=== PATIENT | male | born 1985 | race Caucasian/White ===

== ENCOUNTER → 2020-02-19 | Outpatient (REF) | payer BC ==
[~2020-02-19] MED LIST: FLUT1SPR2; LORA-243 PO
== END ==
LOC: M LAB REF 10:10
PROVIDERS: ATTEND Physician Assistant
DX: J02.9 Acute pharyngitis, unspecified (principal)

== ENCOUNTER 2021-04-21 03:06 | Emergency (ER) | payer BC ==
[~2021-04-21] VITALS: Ht 190.5 cm; Wt 131.0 kg
[2021-04-21 03:08] VITALS: BP 139/80
[2021-04-21] MEDS ORDERED: LOPR1TAB6 PO (03:17)
--- OUTSIDE RECORDS SUMMARY | 2021-04-21 03:18 | CCD | Continuity of Care Document ---
Author Author John MORA Organization Unknown Address [address] [facility] [address] [place] [address] Phone [phone] Care Team Providers Care Clinical Aide Name Role Phone RAYMOND MORA AUTM [phone] Social History Type Date Description Comments Sex Unknown Vital Signs Date Vital Result Comment 03/14/2021 9:27am Height 74 inches 6'2" Weight 281.25 lb BMI (Body Mass Index) 36.1 kg/m2 Body Temperature 98.5 F BP Systolic 148 mmHg BP Diastolic 106 mmHg Heart Rate 129 /min O2 % BldC Oximetry 97 % Respiratory Rate 18 /min Procedures Date Code Description Status 01/10/2021 35813 Office/Outpatient [facility] 30 -44 Minutes Completed Encounters Type Date Location Provider Dx Diagnosis Office Visit 01/10/2021 3:00p [facility] PABLO Joseph I10 Essential (primary) hyperten frantz J30.9 Allergic rhinitis, unspecifi ed Assessments Date Code Description Provider 01/10/2021 I10 Essential (primary) hypertension PABLO Andre 01/10/2021 J30.9 Allergic rhinitis, unspecified F PABLO Dolan Plan of Treatment Future Appointment(s):* 04/15/2021 8:30 am - PABLO Andre at [facility] Referrals Refer to Reason for Referral Status Appt Date Fabien Holly M.D. PATIENT WITH C/O CHEST PRESU RE. PLEASE DO CARDIAC CONSULT. Sent 02/06/[address] [place] [address] [phone]
--- OUTSIDE RECORDS SUMMARY | 2021-04-21 03:18 | CCD | Continuity of Care Document ---
Author Author John MORA Organization Unknown Address [address] [facility] [address] [place] [address] Phone [phone] Care Team Providers Care Drafter Electrical Name Role Phone RAYMOND MORA AUTM Social History Type Date Description Comments Sex Unknown Procedures Date Code Description Status 01/10/2021 26747 Office/Outpatient New Low MDM 30 -44 Minutes Completed Encounters Type Date Location Provider Dx Diagnosis Office Visit 01/10/2021 3:00p [facility] PABLO Joseph I10 Essential (primary) hyperten frantz J30.9 Allergic rhinitis, unspecifi ed Assessments Date Code Description Provider 01/10/2021 I10 Essential (primary) hypertension PABLO Andre 01/10/2021 J30.9 Allergic rhinitis, unspecified F redPABLO Ventura Plan of Treatment Future Appointment(s):* 02/06/2021 1:45 pm - Fabien Holly [facility] at [facility] * 04/15/2021 8:30 am - PABLO Andre at [facility] Referrals Refer to Reason for Referral Status Appt Date Fabien Holly M.D. PATIENT WITH C/O CHEST PRESU RE. PLEASE DO CARDIAC CONSULT. Sent 02/06/[address] [place] [address] [phone]
--- OUTSIDE RECORDS SUMMARY | 2021-04-21 03:18 | CCD | Continuity of Care Document ---
Author Author John NAYLOR P.C. Organization Unknown Address [address] [place] [address] Phone [phone] Care Team Providers Care Crm Specialist Name Role Phone RAYMOND MORA AUTM [phone] Problems Active Problems Provider Date Essential hypertension PABLO Knott Onset: 04/15/2021 Social History Type Date Description Comments Sex Unknown ETOH Use Occasionally consumes alcohol Tobacco Use Start: Unknown End: Unknown Patient is a former smoker Recreational Drug Use Current marijuana use Allergies and adverse reactions Description No Known Drug Allergies Medications Active Medications SIG Qnty Indications Ordering Provide r Date Metoprolol Succinate ER 25mg Tablets ER 24HR 1 tab by mouth every day 90tabs Chito Naylor,P.C. Vital Signs Date Vital Result Comment 04/15/2021 8:33am Height 74 inches 6'2" Weight 285.50 lb BMI (Body Mass Index) 36.7 kg/m2 Body Temperature 98.1 F BP Systolic 127 mmHg BP Diastolic 84 mmHg Heart Rate 76 /min O2 % BldC Oximetry 98 % Respiratory Rate 16 /min 03/14/2021 9:27am Height 74 inches 6'2" Weight 281.25 lb BMI (Body Mass Index) 36.1 kg/m2 Body Temperature 98.5 F BP Systolic 148 mmHg BP Diastolic 106 mmHg Heart Rate 129 /min O2 % BldC Oximetry 97 % Respiratory Rate 18 /min Results Test Acquired Date Facility Test Result H/L Range Note Comprehensive Metabolic Panel 04/15/2021 [facility] Glucose 107 mg/dL High 65-99 1, 2 Urea Nitrogen (BUN) 12 mg/dL Normal 7-25 Creatinine 0.88 mg/dL Normal 0.60-1.35 eGFR Non-Afr. [place] 110 mL/min/1.73m2 Normal > Or = 60 eGFR 127 mL/min/1.73m2 Normal > Or = 60 BUN/Creatinine Ratio NOT APPLICABLE (calc) 6-22 Sodium 140 mmol/L Normal 135-146 Potassium 4.0 mmol/L Normal 3.5-5.3 Chloride 106 mmol/L Normal 98-110 Carbon Dioxide 25 mmol/L Normal 20-32 Calcium 9.3 mg/dL Normal 8.6-10.3 Protein, Total 7.3 g/dL Normal 6.1-8.1 Albumin 4.3 g/dL Normal 3.6-5.1 Globulin 3.0 g/dL(calc) Normal 1.9-3.7 Albumin/Globulin Ratio 1.4 (calc) Normal 1.0-2.5 Bilirubin, Total 0.7 mg/dL Normal 0.2-1.2 Alkaline Phosphatase 46 U/L Normal 36-130 Ast 67 U/L High 10-40 Alt 143 U/L High 9-46 Thyroid Panel With TSH 04/15/2021 [facility] T3 Uptake 27 % Normal 22-35 T4 (Thyroxine), Total 9.0 g/dL Normal 4.9-10.5 Free T4 Index (T7) 2.4 Normal 1.4-3.8 TSH 1.48 mIU/L Normal 0.40-4.50 Laboratory test finding 04/15/2021 [facility] Hemoglobin A1c 5.8 %oftotalHgb High <5.7 3 Enhanced PDF Report [id number] SEE IMAGE 1 FASTING:YES FASTING: YES 2 Fasting reference interval For someone without known diabetes, a glucose value between 100 and 125 mg/dL is consistent with prediabetes and should be confirmed with a follow-up test. 3 For someone without known di abetes, a hemoglobin A1c value between 5.7% and 6.4% is consistent with prediabetes and should be confirmed with a follow-up test. For someone with known diabetes, a value <7% indicates that their diabetes is well controlled. A1c targets should be individualized based on duration of diabetes, age, comorbid conditions, and other considerations. This assay result is consistent with an increased risk of diabetes. Currently, no consensus exists regarding use of hemoglobin A1c for diagnosis of diabetes for children. Procedures Date Code Description Status 04/15/2021 52308 Office/Outpatient Established Mo d MDM 30-39 Min Completed 03/14/2021 83575 Office/Outpatient Established Lo w MDM 20-29 Min Completed 01/10/2021 76777 Office/Outpatient New Low MDM 30 -44 Minutes Completed Encounters Type Date Location Provider Dx Diagnosis Office Visit 04/15/2021 8:45a [facility] PABLO Miner I10 Essential (primary) hypertension R53.83 Other fatigue R73.03 Prediabetes G47.33 Obstructive sleep apnea (larisa lt) (pediatric) Office Visit 03/14/2021 9:30a [facility] PABLO Joseph I10 Essential (primary) hyperten frantz J02.0 Streptococcal pharyngitis Office Visit 01/10/2021 3:00p [facility] PABLO Joseph I10 Essential (primary) hyperten frantz J30.9 Allergic rhinitis, unspecifi ed Assessments Date Code Description Provider 04/15/2021 I10 Essential (primary) hypertension PABLO Knott 04/15/2021 R53.83 Other fatigue PABLO Knott 04/15/2021 R73.03 Prediabetes PABLO Knott 04/15/2021 G47.33 Obstructive sleep apnea (adult) (pediatric) PABLO Knott 03/14/2021 I10 Essential (primary) hypertension PABLO Andre 03/14/2021 J02.0 Streptococcal pharyngitis PABLO Mendiola 01/10/2021 I10 Essential (primary) hypertension PABLO Andre 01/10/2021 J30.9 Allergic rhinitis, unspecified F PABLO Dolan Plan of Treatment Future Appointment(s):* 07/15/2021 8:30 am - PABLO Knott at [facility] 04/15/2021 - PABLO Knott* I10 Essential (primary) hypertension* Comments:* Counseled about life style changes such as Smoking cessation, control blood glucose and lipids, Diet (DASH), reduce sodium to less than 2400 mg QD, Physical activity moderate to vigorous activity 3-4 days per week averaging 40 min per session No change in medications today. Will continue to monitor. * R53.83 Other fatigue* Comments:* Will obtain labs this morning. Will put in referral for sleep study. * R73.03 Prediabetes* Comments:* Will obtain baseline labs today. * G47.33 Obstructive sleep apnea (adult) (pediatric)* Comments:* Stop-Bang Q- 6 High risk of OSASnoring? - yesDo you snore loudly (loud enough to be heard through closed doors, or your bed partner elbows you for snoring at night)? Tired?- yesDo you often feel tired, fatigued, or sleepy during the daytime (such as falling asleep during driving)?Observed? - noHas anyone observed you stop breathing or choking/gasping during your sleep?Blood Pressure? - yes , on medications nowDo you have or are being treated for high blood pressure?Body mass index more than 35 kg/m2?- yes 36.7Age older than 50 years old?- noIs your shirt collar 16 inches or larger? - yes Gender (biologic sex) = Male?- yesMallampati classification3 barley able to see uvula * Referral:* [facility] Referrals Refer to Reason for Referral Status Appt Date [facility] possible obstructive sleep apnea Created [address] [place] [address] [phone] Fabien Holly M.D. PATIENT WITH C/O CHEST PRESU RE. PLEASE DO CARDIAC CONSULT. Closed 02/06/[address] [place] [address] [phone]
--- OUTSIDE RECORDS SUMMARY | 2021-04-21 03:18 | CCD | Continuity of Care Document ---
Author Author John VANEGAS Organization Unknown Address [address] [facility] [address] [place] [address] Phone [phone] Care Team Providers Care Commercial Property Manager Name Role Phone RAYMOND MORA AUTM [phone] Problems Active Problems Provider Date Essential [...] tab by mouth every day 90tabs Chito Negrete,P.C. Vital Signs Date Vital Result Comment 04/15/2021 [...] Creatinine 0.88 mg/dL Normal 0.60-1.35 eGFR Non-Afr. [place] 110 mL/min/1.73m2 Normal > Or = 60 [...] %oftotalHgb High <5.7 3 Enhanced PDF Report [id number] SEE IMAGE 1 FASTING:YES FASTING: YES 2 [...] children. Procedures Date Code Description Status 04/15/2021 66150 Office/Outpatient Established Mo d MDM 30-39 Min Completed 03/14/2021 18180 Office/Outpatient Established Lo w MDM 20-29 Min Completed 01/10/2021 60588 Office/Outpatient New Low MDM 30 -44 Minutes Completed Encounters Type Date Location Provider Dx Diagnosis Office Visit 04/15/2021 8:45a [facility] PABLO Miner I10 Essential (primary) hypertension R53.83 Other fatigue R73.03 Prediabetes G47.33 Obstructive sleep apnea (larisa lt) (pediatric) Office Visit 03/14/2021 9:30a [facility] PABLO Joseph I10 Essential (primary) hyperten frantz J02.0 Streptococcal pharyngitis Office Visit 01/10/2021 3:00p [facility] PABLO Joseph I10 Essential (primary) hyperten frantz [...] 07/15/2021 8:30 am - PABLO Knott at [facility] 04/15/2021 - PABLO Knott* I10 Essential (primary) [...] [facility] possible obstructive sleep apnea Created [address] [place] [address] [phone] Fabien Holly M.D. PATIENT WITH C/O CHEST PRESU RE. PLEASE DO CARDIAC CONSULT. Closed 02/06/[address] [place] [address] [phone]
--- OUTSIDE RECORDS SUMMARY | 2021-04-21 03:18 | CCD ---
Author Author [facility] Organization [facility] Address Unknown Phone Unavailable Care Team Providers Care Sample Collector Name Role Phone Moiz Bullard Unavailable Unavailable MustizerMoiz Unavailable Unavailable MustMoiz boogie Unavailable Unavailable MustMoiz boogie Unavailable Unavailable MustizerMoiz Unavailable Unavailable MustizerMoiz Unavailable Unavailable MustizerMoiz Unavailable Unavailable MustizerMoiz Unavailable Unavailable MustizerMoiz Unavailable Unavailable NO, PCP Unavailable Unavailable LAROCKNancy NP Unavailable Unavailable LAROCKNancy NP Unavailable Unavailable LAROCKNancy NP Unavailable Unavailable LAROCKNancy NP Unavailable Unavailable LAROCKNancy NP Unavailable Unavailable LAROCKNancy NP Unavailable Unavailable LAROCKNancy NP Unavailable Unavailable LAROCKNancy NP Unavailable Unavailable LAROCKNancy NP Unavailable Unavailable LAROCKNancy NP Unavailable Unavailable LAROCKNancy NP Unavailable Unavailable LAROCKNancy NP Unavailable Unavailable LAROCKNancy NP Unavailable Unavailable LAROCKNancy NP Unavailable Unavailable LAROCKNancy NP Unavailable Unavailable LAROCKNancy NP Unavailable Unavailable LAROCKNancy NP Unavailable Unavailable LAROCKNancy NP Unavailable Unavailable LAROCKNancy NP Unavailable Unavailable LAROCKNancy NP Unavailable Unavailable LAROCKNancy NP Unavailable Unavailable LAROCKNancy NP Unavailable Unavailable TURRIN, MORRIS Unavailable Unavailable TURRIN, MORRIS Unavailable Unavailable TURRIN, MORRIS Unavailable Unavailable TURRIN, MORRIS Unavailable Unavailable LEBRON, G EDWARD RPA Unavailable Unavailable LEBRON, G EDWARD RPA Unavailable Unavailable LEBRON, G EDWARD RPA Unavailable Unavailable LEBRON, G EDWARD RPA Unavailable Unavailable LEBRON, G EDWARD RPA Unavailable Unavailable LEBRON, G EDWARD RPA Unavailable Unavailable LEBRON, G EDWARD RPA Unavailable Unavailable LEBRON, G EDWARD RPA Unavailable Unavailable LEBRON, G EDWARD RPA Unavailable Unavailable LEBRON, G EDWARD RPA Unavailable Unavailable LEBRON, G EDWARD RPA Unavailable Unavailable LEBRON, G EDWARD RPA Unavailable Unavailable LEBRON, G EDWARD RPA Unavailable Unavailable LEBRON, G EDWARD RPA Unavailable Unavailable LBERON, G EDWARD RPA Unavailable Unavailable LEBRON, G EDWARD RPA Unavailable Unavailable LEBRON, G EDWARD RPA Unavailable Unavailable LEBRON, G EDWARD RPA Unavailable Unavailable LEBRON, G EDWARD RPA Unavailable Unavailable LEBRON, G EDWARD RPA Unavailable Unavailable LEBRON, G EDWARD RPA Unavailable Unavailable LEBRON, G EDWARD RPA Unavailable Unavailable LEBRON, G EDWARD RPA Unavailable Unavailable LEBRON, G EDWARD RPA Unavailable Unavailable LEBRON, G EDWARD RPA Unavailable Unavailable LEBRON, G EDWARD RPA Unavailable Unavailable LEBRON, G EDWARD RPA Unavailable Unavailable LEBRON, G EDWARD RPA Unavailable Unavailable LEBRON, G EDWARD RPA Unavailable Unavailable LEBRON, G EDWARD RPA Unavailable Unavailable LEBRON, G EDWARD RPA Unavailable Unavailable LEBRON, G EDWARD RPA Unavailable Unavailable LEBRON, G EDWARD RPA Unavailable Unavailable LEBRON, G EDWARD RPA Unavailable Unavailable LEBRON, G EDWARD RPA Unavailable Unavailable LEBRON, G EDWARD RPA Unavailable Unavailable LEBRON, G EDWARD RPA Unavailable Unavailable TONTARSKI, G RAYMOND PA Unavailable Unavailable TONTARSKI, G RAYMOND PA Unavailable Unavailable TONTARSKI, G RAYMOND PA Unavailable Unavailable TONTARSKI, G RAYMOND PA Unavailable Unavailable TONTARSKI, G RAYMOND PA Unavailable Unavailable TONTARSKI, G RAYMOND PA Unavailable Unavailable TONTARSKI, G RAYMOND PA Unavailable Unavailable TONTARSKI, G RAYMOND PA Unavailable Unavailable TONTARSKI, G RAYMOND PA Unavailable Unavailable TONTARSKI, G RAYMOND PA Unavailable Unavailable TONTARSKI, G RAYMOND PA Unavailable Unavailable TONTARSKI, G RAYMOND PA Unavailable Unavailable TONTARSKI, G RAYMOND PA Unavailable Unavailable TONTARSKI, G RAYMOND PA Unavailable Unavailable TONTARSKI, G RAYMOND PA Unavailable Unavailable TONTARSKI, G RAYMOND PA Unavailable Unavailable TONTARSKI, G RAYMOND PA Unavailable Unavailable TONTARSKI, G RAYMOND PA Unavailable Unavailable TONTARSKI, G RAYMOND PA Unavailable Unavailable TONTARSKI, G RAYMOND PA Unavailable Unavailable TONTARSKI, G RAYMOND PA Unavailable Unavailable TONTARSKI, G RAYMOND PA Unavailable Unavailable TONTARSKI, G RAYMOND PA Unavailable Unavailable TONTARSKI, G RAYMOND PA Unavailable Unavailable TONTARSKI, G RAYMOND PA Unavailable Unavailable TONTARSKI, G RAYMOND PA Unavailable Unavailable TONTARSKI, G RAYMOND PA Unavailable Unavailable TONTARSKI, G RAYMOND PA Unavailable Unavailable TONTARSKI, G RAYMOND PA Unavailable Unavailable TONTARSKI, G RAYMOND PA Unavailable Unavailable TONTARSKI, G RAYMOND PA Unavailable Unavailable TONTARSKI, G RAYMOND PA Unavailable Unavailable TONTARSKI, G RAYMOND PA Unavailable Unavailable TONTARSKI, G RAYMOND PA Unavailable Unavailable TONTARSKI, G RAYMOND PA Unavailable Unavailable TONTARSKI, G RAYMOND PA Unavailable Unavailable TONTARSKI, G RAYMOND PA Unavailable Unavailable TONTARSKI, G RAYMOND PA Unavailable Unavailable TONTARSKI, G RAYMOND PA Unavailable Unavailable TONTARSKI, G RAYMOND PA Unavailable Unavailable TONTARSKI, G RAYMOND PA Unavailable Unavailable TONTARSKI, G RAYMOND PA Unavailable Unavailable TONTARSKI, G RAYMOND PA Unavailable Unavailable TONTARSKI, G RAYMOND PA Unavailable Unavailable TONTARSKI, G RAYMOND PA Unavailable Unavailable TONTARSKI, G RAYMOND PA Unavailable Unavailable TONTARSKI, G RAYMOND PA Unavailable Unavailable TONTARSKI, G RAYMOND PA Unavailable Unavailable Re-disclosure Warning The records that you are about to access may contain information from federally-assisted alcohol or drug abuse programs. If such information is present, then the following federally mandated warning applies: This information has been disclosed to you from records protected by federal confidentiality rules (42 CFR part 2). The federal rules prohibit you from making any further disclosure of this information unless further disclosure is expressly permitted by the written consent of the person to whom it pertains or as otherwise permitted by 42 CFR part 2. A general authorization for the release of medical or other information is NOT sufficient for this purpose. The Federal rules restrict any use of the information to criminally investigate or prosecute any alcohol or drug abuse patient.The records that you are about to access may contain highly sensitive health information, the redisclosure of which is protected by Article 27-F of the [facility] Public Health law. If you continue you may have access to information: Regarding HIV / AIDS; Provided by facilities licensed or operated by the [facility] Office of Mental Health; or Provided by the [facility] Office for People With Developmental Disabilities. If such information is present, then the following [facility] mandated warning applies: This information has been disclosed to you from confidential records which are protected by state law. State law prohibits you from making any further disclosure of this information without the specific written consent of the person to whom it pertains, or as otherwise permitted by law. Any unauthorized further disclosure in violation of state law may result in a fine or prison sentence or both. A general authorization for the release of medical or other information is NOT sufficient authorization for further disc losure. Encounters Encounter Providers Location Date Indications Data Source(s ) Outpatient Attender: Breana Bullard [facility] 07:45:00 AM EST [facility] (Fabien Holly MD) Outpatient Attender: RAYMOND MORA [facility] 03/14/2021 09:30:00 AM EDT [facility] (Fabien Holly MD) Outpatient Attender: DIONE WEISS NP 02/10 08:13:40 AM EDT - 03/09/2021 08:32:34 AM EDT [facility] ([facility] ) Outpatient Attender: RAYMOND MORA [facility] 01/10/2021 03:00:00 PM EDT [facility] (Fabien Holly MD) Emergency Attender: MORRIS De Los Santossultant: PCP NO 01/09/2021 10:55:00 AM EDT - 01/09/2021 04:11:00 PM EDT [facility] Patient discharged. Outpatient Attender: KEVIN LEBRON RPA 12/26 08:32:08 AM EDT - 12/26/2020 08:52:23 AM EDT [facility] ([facility] ) Immunizations Vaccine Date Status Description Data Source(s) COVID-19 VACCINE Moderna 04/16/2021 12:00:00 AM EST completed [facility] Vaccine Series Complete: YESThis Data wa s Submitted to [facility] Via VoterTide. COVID-19 VACCINE Moderna 08/30/2020 12:00:00 AM EDT completed [facility] Vaccine Series Complete: YESThis Data wa s Submitted to [facility] Via ShopitizeIS. COVID-19 VACCINE Moderna 08/02/2020 12:00:00 AM EDT completed [facility] Vaccine Series Complete: NOThis Data was Submitted to [facility] Via VoterTide. Medications Medication Brand Name Start Date Product Form Dose Route Admi nistrative Instructions Pharmacy Instructions Status Indications Reaction Description Data Source(s) Amoxicillin 875 MG Oral Tablet Amoxicillin 02/22/2020 12:00:00 AM EDT ORAL active [facility] ([facility]) Insurance Providers Payer name Policy type / Coverage type Policy ID Covered alliance party ID Covered alliance party's relationship to galeana Policy [place] Plan Information [employer] and Blue Shield [place] Blue Cross/B lue Shield [id number] Self [id number] BLUE CROSS BLUE SHIELD -O/P [id number] 18 [id number] BCBS [place] WATN PPO 302/[id number] SP [id number] ANSI-Commercial [id number] [employer]CELL[place] BCBS B [id number] S [id number] BS [place] Commercial [id number] Self [id number] SP [id number] BLUE CROSS [id number] 18 [id number] BCBS OF [place] [id number] SP [id number] Problems, Conditions, and Diagnoses Code Display Name Description Problem Type Effective Dates Data Source(s) Q11073 Personal history of nicotine dependence Personal history of nicotine dependence Diagnosis 01/09/2021 10:55:00 AM [facility] 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 Diagnosis 01/09/2021 10:55:00 AM [facility] I10 Essential (primary) hypertension Essential (primary) h ypertension Diagnosis 01/09/2021 10:55:00 AM [facility] R0789 Other chest pain Other chest pain Diagnosis 01/09/2021 10 :55:00 AM [facility] [id number] Essential hypertension Essential hypertension Problem 04/15/2021 12:00:00 AM EST [facility] (Fabien Holly MD) Surgeries/Procedures Procedure Description Date Indications Data Source(s) OFFICE OUTPATIENT VISIT 25 MINUTES 04/15/2021 12:00:00 AM EST [facility] (Fabien Holly MD) OFFICE OUTPATIENT VISIT 15 MINUTES 03/14/2021 12:00:00 AM EDT [facility] (Fabien Holly MD) OFFICE OUTPATIENT NEW 30 MINUTES 01/10/2021 12:00:00 A M EDT [facility] (Fabien Holly MD) Results ID Date Data Source [id number] 04/15/2021 09:00:00 AM EST [facility] (Fabien Holly MD) Name Value Range Interpretation Code Description Data Lore rce(s) Supporting Document(s) Hemoglobin A1c/Hemoglobin.total in Blood 5.8 %oftotalHgb A juany high normal [facility] (Fabien Holly MD) FASTING:YES FASTING: YES Laboratory test finding (navigational concept) Laboratory test result [facility] (Fabien Holly MD) FASTING:YES FASTING: YES ID Date Data Source [id number] 04/15/2021 09:00:00 AM EST [facility] (Fabien Holly MD) Name Value Range Interpretation Code Description Data Lore rce(s) Supporting Document(s) Triiodothyronine resin uptake (T3RU) in Serum or Plasma 27 % 22-35 Normal (applies to non-numeric results) [facility] (Fabien Holly MD) FASTING:YES FASTING: YES Thyroxine (T4) [Mass/volume] in Serum or Plasma 9.0 ug/dL 4.9-10.5 Normal (applies to non-numeric results) [facility] (Fabien Holly MD) FASTING:YES FASTING: YES Thyroxine (T4) free index in Serum or Plasma by calculation 2.4 1.4-3.8 Normal (applies to non-numeric results) [facility] (Fabien Holly MD) FASTING:YES FASTING: YES Thyrotropin [Units/volume] in Serum or Plasma 1.48 mIU/L 0. 40-4.50 Normal (applies to non-numeric results) [facility] (Fabien Holly MD) FASTING:YES FASTING: YES ID Date Data Source [id number] 04/15/2021 09:00:00 AM EST [facility] (Fabien Holly MD) Name Value Range Interpretation Code Description Data Lore rce(s) Supporting Document(s) Glucose [Mass/volume] in Serum or Plasma 107 mg/dL 65-99 Above high normal [facility] (Fabien Holly MD) FASTING:YES FASTING: YES Urea nitrogen [Mass/volume] in Serum or Plasma 12 mg/dL 7 -25 Normal (applies to non-numeric results) [facility] (Fabien Holly MD) FASTING:YES FASTING: YES Creatinine [Mass/volume] in Serum or Plasma 0.88 mg/dL 0.60 -1.35 Normal (applies to non-numeric results) [facility] (Fabien Holly MD) FASTING:YES FASTING: YES eGFR Non-Afr. [place] Citizen 110 mL/min/1.73m2 Normal (applies to non-numeric results) [facility] (Fabien Holly MD) FASTING:YES FASTING: YES Urea nitrogen/Creatinine [Mass Ratio] in Serum or Plasma Lab oratory test result 6-22 [facility] (Fabien Holly MD) FASTING:YES FASTING: YES eGFR 127 mL/min/1.73m2 Normal ( applies to non-numeric results) [facility] (Fabien Holly MD) FASTING:YES FASTING: YES Sodium [Moles/volume] in Serum or Plasma 140 mmol/L 135-146 Normal (applies to non-numeric results) [facility] (Fabien Holly MD) FASTING:YES FASTING: YES Potassium [Moles/volume] in Serum or Plasma 4.0 mmol/L 3.5- 5.3 Normal (applies to non-numeric results) [facility] (Fabien Holly MD) FASTING:YES FASTING: YES Chloride [Moles/volume] in Serum or Plasma 106 mmol/L 98-11 0 Normal (applies to non-numeric results) [facility] (Fabien Holly MD) FASTING:YES FASTING: YES Carbon dioxide, total [Moles/volume] in Serum or Plasma 25 mmol/ L 20-32 Normal (applies to non-numeric results) [facility] (Fabien Holly MD) FASTING:YES FASTING: YES Calcium [Mass/volume] in Serum or Plasma 9.3 mg/dL 8.6-10. 3 Normal (applies to non-numeric results) [facility] (Fabien Holly MD) FASTING:YES FASTING: YES Protein [Mass/volume] in Serum or Plasma 7.3 g/dL 6.1-8.1 Normal (applies to non-numeric results) [facility] (Fabien Holly MD) FASTING:YES FASTING: YES Albumin [Mass/volume] in Serum or Plasma 4.3 g/dL 3.6-5.1 Normal (applies to non-numeric results) [facility] (Fabien Holly MD) FASTING:YES FASTING: YES Globulin [Mass/volume] in Serum by calculation 3.0 g/dL(calc) 1 .9-3.7 Normal (applies to non-numeric results) [facility] (Fabien Holly MD) FASTING:YES FASTING: YES Albumin/Globulin [Mass Ratio] in Serum or Plasma 1.4 (calc) 1.0-2.5 Normal (applies to non-numeric results) [facility] (Fabien Holly MD) FASTING:YES FASTING: YES Bilirubin.total [Mass/volume] in Serum or Plasma 0.7 mg/dL 0.2-1.2 Normal (applies to non-numeric results) [facility] (Fabien Holly MD) FASTING:YES FASTING: YES Aspartate aminotransferase [Enzymatic activity/volume] in Serum or Plasma 67 U/L 10-40 Above high normal [facility] (Fabien Holly MD) FASTING:YES FASTING: YES Alanine aminotransferase [Enzymatic activity/volume] in Seru m or Plasma 143 U/L 9-46 Above high normal [facility] (Fabien Holly MD) FASTING:YES FASTING: YES Alkaline phosphatase [Enzymatic activity/volume] in Serum or Plasma 46 U/L 36-130 Normal (applies to non-numeric results) [facility] ( Fabien Holly MD) FASTING:YES FASTING: YES ID Date Data Source [id number] 03/09/2021 08:30:00 AM EDT [facility] Name Value Range Interpretation Code Description Data Lore rce(s) Supporting Document(s) SARS-CoV-2 RNA Resp Ql GRACIA+probe DETECTED [facility] This lab was ordered by JESS rausch and reported by JESS Ha. ID Date Data Source [id number] 01/09/2021 08:30:00 [place] [address] RESPIRATORY CARE REPORT ==== ---------NAME------- NUMBER SEX AGE ADMIT DISC. XRAY# F/C OTFLASHANDAELIDIA SANABRIAMARKTOSHIA [id number] M 35 01/09/21 01/09/21 [id number] E/R DATE OF : 1985 M/R# [id number] #: [id number] TR-08 LOCATION: EMERGENCY DEPT [facility] [id number] COMPLE TE:01/09/21 14:59 [place] [address] PHYSICIAN: BENJAMIN VASQUEZ Name Value Range Interpretation Code Description Data Lore rce(s) Supporting Document(s) ID Date Data Source [id number] 01/09/2021 10:55:00 AM EDT [facility] 1 OrderSheet [facility] Emergency Department [address] [place] [address] Phone #: ext- [phone] 01/09/2021 10:52 Patient: ABIDA MEDRANO Sex: M : 1985 Age: 35yWEIGHT:131.3 kg (M) HEIGHT:74 inches BMI:37.2ALLERGIES: No Known Drug AllergyCHIEF COMPLAINT: chest painDIAGNOSIS: Atypical chest pain, Hypertensive disorderLAB ORDERSOrder Description Priority Entered Acknowledged InitialedCBC w Diff STAT 11:20 01/09/2021 11:22 Morris Booker RN, M.D.;CMP STAT 11:20 01/09/2021 11:22 Morris Booker RN, M.D.;Lipase STAT 11:01/09/2021 11:22 Morris Booker RN, M.D.;Troponin-T STAT 11:20 01/09/2021 11:22 Morris Booker RN, M.D.;Troponin-T STAT 14:51 01/09/2021 14:52 Morris Booker RN, M.D.;DIAGNOSTIC STUDY ORDERSOrder Description Priority Entered Acknowledged InitialedChest Portable 1 STAT 11:20 2020 11:22 Morris Tinoco RN(Oxygen?(No)) Rody; Reason for Study: Chest PainMEDICATION/IV/DRIP/FLUID ORDERSOrder Description Priority Entered Acknowledged InitialedAspirin PO 11:20 01/09/2021 11:27 RoeChewable 81 mg Morris Cary RN324 mg MJayashreeDJayashree;Lopressor PO 25 11:20 01/09/2021 11:27 Morris Perez RN, M.D.; 2 OrderSheet [facility] Emergency Department [address] [place] [address] Phone #: ext- [phone] 01/09/2021 10:52 Patient: ABIDA MEDRANO [facility]#: [id number] Sex: M : 1985 Age: 35yNitroGLYCERIN 11:20 01/09/2021 11:30 RoeTopical Ointment Morris Cary RN0.5 inJayashree Fine;GENERAL ORDERSOrder Description Priority Entered Acknowledged InitialedBlood Pressure 11:01/09/2021 11:22 Kateitor Morris Cary RN, M.D.;Fork Lift Mechanic 11:01/09/2021 11:22 Roe(continuous) Morris Cary RN, M.D.;EKG 11:01/09/2021 11:22 Morris Booker RN, M.D.;NPO 11:01/09/2021 11:22 Morris Booker RN, M.D.;Obtain Old EKG 11:01/09/2021 11:22 Morris Booker RN, M.D.;Obtain Old Records 11:01/09/2021 11:22 Morris Booker RN, M.D.;Oxygen titrate to 11:01/09/2021 11:22 Roe92Morris Noel RN, M.D.;Pulse oximeter 11:01/09/2021 11:22 Roe(Continuous) Morris Cary RN, M.D.;Saline Lock 11:01/09/2021 11:22 Morris Booker RN, M.D.;Vitals 11:01/09/2021 11:22 Morris Booker RN, M.D.;[Electronically signed by Roe Mercado RN (16:11 01/09/2021)][Electronically signed by Morris Cary M.D. (17:32 01/09/2021)][Electronically locked by Roe Mercado RN (16:11 01/09/2021)] Name Value Range Interpretation Code Description Data Lore rce(s) Supporting Document(s) ID Date Data Source [id number] 01/09/2021 10:55:00 AM EDT [facility] 1 Medication Reconciliation Report [facility] Emergency Department [address] [place] [address] Phone #: ext- [phone] 01/09/2021 10:52 Patient: ABIDA MEDRANO Sex: M : 1985 Age: 35yWeight: 131.3 kgHeight/Length: 74 in.BMI: 37.2ALLERGIES: No Known Drug AllergyThe patient's Home Medications are listed below:CONTINUE TAKING THE FOLLOWING MEDICATIONS: Aspirin Oral (81 mg) Cetirizine HCl OralThe source(s) of the original Home Medication information:Not obtained.The following Medications were given to the patient in the Emergency Department:ASPIRIN CHEWABLE 81 MG [PO] PO 324 mg, administered: 11:01/09/2021opressor [PO] PO 25 mg, administered: 11:01/09/2021NITROGLYCERIN [TOPICAL OINTMENT] Topical 0.5 in., administered: 11:30 01/09/2021The following Medications were prescribed to the patient:Toprol XL 25 mg tablet,extended release Take 1 tablet once a day for 30 days -- Dispense 30 tablet.Refills: 2. Substitution permitted.Pharmacy - [facility] [phone] ; [place] [address]. . -- Morris Cary M.D. Name Value Range Interpretation Code Description Data Lore rce(s) Supporting Document(s) ID Date Data Source [id number] 01/09/2021 10:55:00 AM EDT [facility] 1 Medication Administration Record [facility] Emergency Department [address] [place] [address] Phone #: ext- [phone] 01/09/2021 10:52 Patient: ABIDA MEDRANO Sex: M : 1985 Age: 35yWeight: 131.3 kgHeight/Length: 74 inBMI: 37.2ALLERGIES: No Known Drug Allergy Date/Time Medication Administered Medication OrderedGiven ASPIRIN CHEWABLE 81 MG [PO] Aspirin PO Chewable 81 mg 48022:01/09/2021 Dose: 324 mg Tablets PO Dwayne Mercado RNGiven LOPRESSOR [PO] (METOPROLOL Lopressor PO 25 mg11:27 01/09/2021 TARTRATE)Roe Mercado RN Dose: 25 mg Tablets POGiven NITROGLYCERIN [TOPICAL OINTMENT] NitroGLYCERIN Vshsacs08:30 01/09/2021 Dose: 0.5 in. Ointment Topical Ointment 0.5 in.Roe Mercado RN Name Value Range Interpretation Code Description Data Lore rce(s) Supporting Document(s) ID Date Data Source [id number] 01/09/2021 10:55:00 AM EDT [facility] 1 General Instructions [facility] Emergency Department [address] [place] [address] Phone #: ext [phone] 01/09/2021 10:52 Patient: ABIDA MEDRANO Sex: M : 1985 Age: 35yAtypical chest painEssential hypertension.INSTRUCTIONSNo strenuous activity until released.Avoid stimulants (such as cigarettes, coffee, cold medicines, sinus medicines, street drugs). Follow a lowsalt diet and low cholesterol diet. Do not smoke. No alcohol.Warnings: Further evaluation is necessary in order to conduct further tests (CARDIOLOGY). It is veryimportant to follow up with a healthcare provider.GENERAL WARNINGS: Return or contact your physician immediately if your condition worsens orchanges unexpectedly, if not improving as expected, or if other problems arise. SPECIFICALLY, return ifyou develop chest, neck, jaw, shoulder, arm, or back pain, difficulty breathing, a fluttering sensation in yourchest, lightheadedness, fainting, excessive fatigue, or sudden sweating.Your Current Medications: Your current home medications have been reviewed.CONTINUE TAKING THE FOLLOWING MEDICATIONS:Aspirin Oral : Tablet Chewable 81 mg.Cetirizine HCl Oral.Prescription Medications:Toprol XL 25 mg tablet,extended release Take 1 tablet once a day for 30 days -- Dispense 30 tablet.Refills: 2. Substitution permitted.Pharmacy - [facility] [phone] ; [place] [id number]. .Follow-up:Return to the emergency department as needed. Follow up with a senior business process analyst in three days even if well.Call for an appointment. Reason for referral: evaluation, treatment and STRESS TEST. Summary of careprovided to patient via paper.Understanding of the discharge instructions verbalized by patient. Expected course of illness, dischargeinstructions, activity level, diet, follow-up appointment and risks and benefits of treatment reviewed withpatient and understanding verbalized. Agrees to plan of care.Follow-up with: Fabien Holly MD, Cardiology, , [address] [place] [address], [id number] Follow up in three days even if well. Call for an appointment. Reason for referral: evaluation, treatment 2 General Instructions [facility] Emergency Department [address] [place] [address] Phone #: ext- [phone] 01/09/2021 10:52 Patient: ABIDA MEDRANO Sex: M : 1985 Age: 35yand STRESS TEST. Summary of care provided to patient via paper. ADDITIONAL INFORMATIONNoncardiac Chest PainBased on your visit today, the healthcare provider doesn't know what is causing your chest pain. Inmost cases, people who come to the emergency room with chest pain don't have a problem with theirheart. Instead, the pain is caused by other conditions. It's important for the healthcare team to be sureyou are not having a life- threatening cause for chest pain such as: Heart attack Blood clot in the lungs Collapsed lung Ruptured esophagus Tearing of the aortaOnce these major causes have been ruled out, you may have further evaluation for nonheart causesof chest pain. These may be problems with the lungs, muscles, bones, digestive tract, nerves, ormental health. They include: Inflammation around the lungs (pleurisy) Collapsed lung (pneumothorax) Fluid around the lungs (pleural effusion) 3 General Instructions [facility] Emergency Department [address] [place] [address] Phone #: ext- [phone] 01/09/2021 10:52 Patient: ABIDA MEDRANO Sex: M : 1985 Age: 35y Lung cancer (a rare cause of chest pain) Inflamed cartilage between the ribs (costochondritis) Fibromyalgia Rheumatoid arthritis Chest wall strain Reflux Stomach ulcer Spasms of the esophagus Gall stones Gallbladder inflammation Panic or anxiety attacks Emotional distressYour condition doesn't seem serious. And your pain doesn't seem to be coming from your heart. Butsometimes the signs of a serious problem take more time to appear. Watch for the warning signslisted below.Home careFollow these guidelines when caring for yourself at home: Rest today and don't do any strenuous activity. Take any prescribed medicine as directed.Follow-up careFollow up with your healthcare provider, or as advised, if you don't start to feel better in 24 hours.Call [id number] [phone] if any of these occur: A change in the type of pain: if it feels different, becomes more severe, lasts longer, or begins to spread into your shoulder, arm, neck, jaw or back Shortness of breath or increased pain with breathing Weakness, dizziness, or fainting 4 General Instructions [facility] Emergency Department [address] [place] [address] Phone #: ext- [phone] 01/09/2021 10:52 Patient: ABIDA MEDRANO Sex: M : 1985 Age: 35y Rapid heart beat Crushing sensation in your chestWhen to seek medical adviceCall your healthcare provider right away if any of these occur: Cough with dark colored sputum (phlegm) or blood Fever of 100.4F (38C) or higher, or as directed by your healthcare provider Swelling, pain or redness in one leg [phone] [employer]. [address] [place] [address]. All rights reserved. This information is not intended as asubstitute for professional medical care. Always follow your healthcare professional's instructions.High Blood Pressure, New, Begin TreatmentYour blood pressure was high enough today to start treatment with medicines. Often healthcareproviders don't know what causes high blood pressure (hypertension). But it can be controlled withlifestyle changes and medicines. Hi gh blood pressure usually has no symptoms. But it can sometimescause headache, dizziness, blurred vision, a rushing sound in your ears, chest pain, or shortness ofbreath. But even without symptoms, high blood pressure that's not treated raises your risk for heartattack, heart failure, kidney disease, vascular disease, and stroke. High blood pressure is a serioushealth risk and shouldn't be ignored.Blood pressure measurements are given as 2 numbers. Systolic blood pressure is the upper number. This is the pressure when the heart contracts. Diastolic blood pressure is the lower number. This is the pressure when the heart relaxes between beats.You will see your blood pressure readings written together. For example, a person with a systolicpressure of 118 and a diastolic pressure of 78 will have 118/78 written in the medical record.Blood pressure is categorized as normal, elevated, or stage 1 or stage 2 high blood pressure: 5 General Instructions [facility] Emergency Department [address] [place] [address] Phone #: ext- [phone] 01/09/2021 10:52 Patient: ABIDA MEDRANO Sex: M : 1985 Age: 35y Normal blood pressure is systolic of less than 120 and diastolic of less than 80 (120/80) Elevated blood pressure is systolic of 120 to 129 and diastolic less than 80 Stage 1 high blood pressure is systolic is 130 to 139 or diastolic between 80 to 89 Stage 2 high blood pressure is when systolic is 140 or higher or the diastolic is 90 or higherHome careIf you have high blood pressure, do what's listed below to lower your blood pressure. If you are takingmedicines for high blood pressure, these methods may reduce or end your need for medicines in thefuture. Begin a weight-loss program if you are overweight. Cut back on how much salt you get in your diet. Here's how to do this: o Don't eat foods that have a lot of salt. These include olives, pickles, smoked meats, and salted potato chips. o Don't add salt to your food at the table. o Use only small amounts of salt when cooking. o Review food labels to track how much salt is in prepared foods. o When eating out, ask that no additional salt be added to your food order. o Ask your provider about the DASH diet or the DASH (dietary approaches to stop hypertension) eating plan. Start an exercise program. Talk with your healthcare provider about the type of exercise program that would be best for you. It doesn't have to be hard. Even brisk walking for 20 minutes 3 times a week is a good form of exercise. Don't take medicines that have heart stimulants. This includes many aygy-www-uwgraoz cold and sinus decongestant pills and sprays, as well as diet pills. Check the warnings about high blood pressure on the label. Before purchasing any eike-vgu-iwmxxpk medicines or supplements, always ask the pharmacist about the product's potential interaction with your high blood pressure and your high blood pressure medicines. Stimulants such as amphetamine or cocaine could be lethal for someone with high blood pressure. Never take these. Limit how much caffeine you get in your diet. Switch to caffeine-free products. Stop smoking. If you are a long-time smoker, this can be hard. Enroll in a stop-smoking 6 General Instructions [facility] Emergency Department [address] [place] [address] Phone #: ext- [phone] 01/09/2021 10:52 Patient: ABIDA MEDRANO Sex: M : 1985 Age: 35y program to make it more likely that you will quit for good. Or, talk with your healthcare provider about nicotine replacements or medicines that can help. Learn how to handle stress. This is an important part of any program to lower blood pressure. Learn about relaxation methods like meditation, yoga, or biofeedback. If your provider prescribed medicines, take them exactly as directed. Missing doses may cause your blood pressure to get out of control. If you miss a dose or doses, check with your healthcare provider or pharmacist about what to do. Limit alcohol. Drinking too much alcohol can raise blood pressure. Men should have no more than 2 drinks a day. Women should have no more than 1. A drink is equal to 1 beer, or a small glass of wine, or a shot of liquor.. Consider buying an automatic blood pressure machine so you can check your blood pressure regularly at home. Your provider can make a recommendation. You can get one of these at most pharmacies.The [place] [employer] recommends the following guidelines for home blood pressuremonitoring: Don't smoke or drink coffee or other caffeinated drinks or exercise for 30 minutes before taking your blood pressure. Go to the bathroom before the test. Relax for 5 minutes before taking the measurement. Sit with your back supported (don't sit on a couch or soft chair); keep your feet on the floor uncrossed. Place your arm on a solid flat surface (like a t able) with the upper part of the arm at heart level. Place the middle of the cuff directly above the bend of the elbow. Check the monitor's instruction manual for an illustration. Take multiple readings. When you measure, take 2 to 3 readings one minute apart and record all of the results. Take your blood pressure at the same time every day, or as your healthcare provider recommends. Record the date, time, and blood pressure reading. Take the record with you to your next medical appointment. If your blood pressure monitor has a built-in memory, simply take the monitor with you to your next appointment. Call your provider if you have several high readings. Don't be frightened by a single high 7 [facility] Emergency Department [address] [place] [address] Phone #: ext- [phone] 01/09/2021 10:52 Patient: ABIDA MEDRANO Sex: M : 1985 Age: 35y blood pressure reading, but if you get several high readings, check in with your healthcare provider. Note: If blood pressure reaches a systolic (top number) of 180 or higher OR diastolic (bottom number) of 120 or higher, seek emergency medical treatment.Follow-up careBecause a new blood pressure medicine was started today, it's important that you have your bloodpressure rechecked. This is to make sure that the medicine is working and that you have no seriousside effects. Keep all your follow up appointments. Write down medicine and blood pressurequestions and bring them to your next appointment. If you have pressing concerns about your newmedicine or your blood pressure, call your provider. Unless told otherwise, follow up with yourhealthcare provider within the next 3 days.When to seek medical careCall yo ur healthcare provider right away if any of these occur: Blood pressure reaches a systolic (top number) of 180 or higher, OR diastolic (bottom number) of 120 or higher, seek emergency medical treatment. Chest pain or shortness of breath Severe headache Throbbing or rushing sound in the ears Nosebleed Sudden severe pain in your belly (abdomen) Extreme drowsiness, confusion, or fainting Dizziness or dizziness with a spinning sensation (vertigo) Weakness of an arm or leg or one side of the face You have problems speaking or seeing [phone] [employer] [place] [address]. All rights reserved. This information is not intended as asubstitute for professional medical care. Always follow your healthcare professional's instructions. You have been given the following additional information: Chest Pain, Noncardiac Hypertension, New (Begin Treatment) 8 General Instructions [facility] Emergency Department [address] [place] [address] Phone #: few- [phone] 01/09/2021 10:52 [id number] Sex: [facility] : 1985 Age: 35yNo strenuous activity until released.(Electronically signed by Morris Cary M.D. 01/09/2021 17:32) Name Value Range Interpretation Code Description Data Lore rce(s) Supporting Document(s) ID Date Data Source [id number] 01/09/2021 10:55:00 AM EDT [facility] 1 Clinical Report - Nurses [facility] Emergency Department [address] [place] [address] Phone #: ext- [phone] 01/09/2021 10:52 [id number] Sex: M : 1985 Age: 35yTRIAGEArrived by private vehicle. Historian: patient.Acuity: LEVEL 3.Chief Complaint: (Elevated BP, Rapid HR). BLOOD PRESSURE ELEVATED.11:00 01/09/21. Alert. No acute distress.This started last night. ( Patient reports last night he was "feeling off". continued to "feel off" at work thismorning, took his BP and HR; BP was 181/111 and HR was 121; was advised to come to ED. Pt states hefeels lightheaded. Pt also reports L sided chest pain.).SEPSIS SCREEN: SIRS SCREEN NEGATIVE: heart rate greater than 90. SEPSIS SCREEN NEGATIVE.No suspected or confirmed signs of infection present.CHRISSY COMA SCORE: 15- eyes open- spontaneous (4); best verbal response- oriented (5); bestmotor response- obeys commands (6). --11:00 01/09/21 Kaitlin Hdz R.N.10:55 01/09/21. BP: 150/100. MAP: 116. HR: 106. RR: 20. O2 saturation: 99%. Temp: 98.1 F. Pain levelnow: 07/18. --11:00 01/09/21 Kaitlin Hdz R.N.Weight: 131.3 kg measured. Height/Length: 74 inches. BMI: 37.2. --10:59 01/09/21 Kaitlin Hdz R.N.MedicationsCetirizine HCl Oral. --10:57 01/09/21 Kaitlin Hdz R.N. Aspirin Oral (Tablet Chewable 81 mg). --10:57 01/09/21 Kaitlin Hdz R.N.AllergiesNo Known Drug Allergy. --10:57 01/09/21 Kaitlin Hdz R.N.PROBLEMS:no known problems.ADDITIONAL SURGERIES:Appendectomy. --10:57 01/09/21 Kaitlin Hdz R.N.Ywhtear12:00 01/09/21.PAST MEDICAL HX: Immunizations not up to date.SOCIAL HX: Former smoker, end date december 15 2020. No alcohol use or drug use. He was offered HIV 2 Clinical Report - Nurses [facility] Emergency Department [address] [place] [address] Phone #: ext- [phone] 01/09/2021 10:52 Patient: ABIDA MEDRANO Sex: M : 1985 Age: 35y testing but declined and hepatitis C testing but declined. He has not traveled outside the [place] Infectious disease exposure: The patient was not exposed to C- diff, MRSA or Coronavirus. (Has had covid vaccine). SELF HARM ASSESSMENT: Self harm assessment was performed. The patient answered "no" to the question(s) "Have you recently felt down, depressed, or hopeless?", "Do you have thoughts of harming or killing yourself?", "Do you have a plan for harming or killing yourself?" and "Have you recently had thoughts about harming or killing others?". ABUSE ASSESSMENT: No report of abuse. NUTRITIONAL RISK ASSESSMENT: The nutritional risk assessment revealed no deficiencies. FUNCTIONAL ASSESSMENT: Functional assessment: no impairments noted. LEARNING NEEDS ASSESSMENT: The learning needs assessment revealed no barriers. FALL RISK ASSESSMENT: Fall risk assessment completed. Risk factors identified include dizziness. Fall interventions initiated. Patient placed on stretcher. Side rails up x2. Bed in low position. Brakes on. SKIN INTEGRITY ASSESSMENT: Skin integrity risk assessment completed. No skin integrity risk identified. --11:00 01/09/21 Kaitlin Hdz R.N. FAMILY HX: No significant family medical history. --11:25 01/09/21 Morris Cary M.D. Interventions 11:00 01/09/21. Identification band on patient. To treatment room. --11:01/09/21 Kaitlin Hdz R.N.PHYSICAL ASSESSMENTAmbulatory to room.GENERAL / NEURO / PSYCH: Alert. Oriented X 4. Appears in pain, anxious and in distress.HEENT: Pupils equal, round and reactive to light. No facial asymmetry noted. Mucous membranes arepink.RESPIRATORY: Respirations not labored. Chest nontender. Breath sounds within normal limits.CVS: Cardiac rhythm: sinus tachycardia. ( no pain with palpation of chest). Capillary refill less than 2seconds. Pulses within normal limits.GI / : Abdomen soft and nontender and normal bowel sounds.SKIN: Skin intact. Skin is warm and dry. Normal skin turgor. --11:12 01/09/21 Roe Mercado RN.NURSING PROGRESS NOTES10:52 01/09/21. EKG time: (10:52 01/09/2021). EKG was performed by a nurse and shown to the EDphysician. Dr Cary. --11:07 01/09/21 Kaitlin Hdz R.N. 11:01/09/21. monitoring coordinator, NIBP monitor and pulse oximeter placed on patient; manager monitoring- 3 Clinical Report - Nurses [facility] Emergency Department [address] [place] [address] Phone #: ext- [phone] 01/09/2021 10:52 Patient: ABIDA MEDRANO Sex: M : 1985 Age: 35y Lead II; monitor alarms on. Patient gowned. Two patient identifiers checked. Call light placed in reach. Side rails up x 2. Bed placed in lowest position. Brakes of bed on. Patient ready for evaluation- ED physician and PA notified. --11:01/09/21 Kaitlin Hdz R.N. 11:12 01/09/2021 Site #1 started via IV in the right antecubital space with an 20g angiocath, with aseptic technique and good blood return; two attempts. Saline lock flushed with 10 mL saline. --11:12 01/09/21 Roe Mercado RN 11:27 01/09/2021 ASPIRIN CHEWABLE 81 MG PO Tablets 324 mg given. Allergies verified and confirmed 5 rights. Information reviewed with patient including reason for taking this medication. Verbalizes understanding. --11:27 01/09/21 Roe Mercado RN 11:27 01/09/2021 Lopressor (Metoprolol Tartrate) PO Tablets 25 mg given. Allergies verified and confirmed 5 rights. Information reviewed with patient including reason for taking this medication. Verbalizes understanding. --11:01/09/21 Roe Mercado RN 11:30 01/09/2021 NITROGLYCERIN Topical Ointment 0.5 inch given. Applied to the affected area. Allergies verified and confirmed 5 rights. Information reviewed with patient including reason for taking this medication. Verbalizes understanding. (to left anterior chest). --11:01/09/21 Roe Mercado RN 13:43 01/09/21. BP: 113/64. MAP: 80. HR: 87. RR: 16. O2 saturation: 95%. Pain level now: 05/20. --13:43 01/09/21 Roe Mercado RN 15:45 01/09/2021 Site #1 removed upon discharge. Catheter intact. Manual pressure and bandage applied. --15:45 01/09/21 Roe Mercado RN.DISPOSITION / DISCHARGE Condition at departure: improved and stable. Discharge instructions provided and reviewed. Reviewed medication(s) side effects, precautions, dosing and course information. Prescription(s) sent electronically to pharmacy. Activity restrictions (rest) reviewed. Patient verbalized understanding. Written instructions provided in French. The patient was discharged by the physician. He was discharged home and accompanied by parent. He left ambulatory and via private vehicle. Parent driving. --16:10 01/09/21 Roe Mercado RN 16:06 01/09/21. BP: 106/71. MAP: 82. HR: 89. RR: 16. O2 saturation: 95%. Pain level now: 010. --16:10 01/09/21 Roe Mercado RN.Locked/Released at 01/09/2021 16:11 by Roe Mercado RN 4 Clinical Report - Nurses [facility] Emergency Department [address] [place] [address] Phone #: ext- [phone] 01/09/2021 10:52 Patient: ABIDA MEDRANO Sex: M : 1985 Age: 35y Name Value Range Interpretation Code Description Data Lore rce(s) Supporting Document(s) ID Date Data Source [id number] 01/09/2021 10:55:00 AM EDT [facility] 1 Clinical Report - Physicians/Mid Levels [facility] Emergency Department [address] [place] [address] Phone #: ext [phone] 01/09/2021 10:52 Patient: ABIDA MEDRANO Sex: M : 1985 Age: 35y Time Seen: 10:58 01/09/2021; initial patient contact. Arrived- By private vehicle. Historian- patient. Disposition decision: 15:59 01/09/2021.HISTORY OF PRESENT ILLNESS Chief Complaint: CHEST PAIN. This started just prior to arrival and is still present but is improving. It was gradual in onset and has been constant. Onset during rest. It is described as pressure and it is described as located in the left chest area. No radiation. At its maximum, severity described as mild and 3 / 10. When seen in the E.D., it was almost gone and severity described as 1 / 10. Modifying factors. Not worsened by anything. Not relieved by anything. The patient has had nausea. No vomiting or difficulty breathing. He has experienced mild associated diaphoresis. (pt was at work at [employer], started to sweat then felt off w palpitations and left sided chest pressure; took his BP at automated machine and it was 181/111, pulse 121/min; pt was at 2 weeks ago for strep throat and his BP was also high; pt stopped smoking on 12-15-20; pt denies stress or anxiety). Similar symptoms previously. None. Recent medical care: The patient was seen recently at another facility in a clinic. ( 2 weeks ago for strep and had HTN).REVIEW OF SYSTEMSNo fever, cough, pedal edema, calf pain or fainting episodes. No headache, sore throat, blurred vision,abdominal pain or black stools. No difficulty with urination, skin rash, enlarged lymph nodes, joint pain orbloody stools. All other systems reviewed and are negative.PAST HISTORYSee nurses notes. Problems: no known problems. Additional Surgeries: Appendectomy. Medications: Aspirin Oral (Tablet Chewable 81 mg). Cetirizine HCl Oral. Allergies: No Known Drug Allergy. 2 Clinical Report - Physicians/Mid [facility] Emergency Department [address] [place] [address] Phone #: ext- [phone] 01/09/2021 10:52 Patient: ABIDA MEDRANO Sex: M : 1985 Age: 35ySOCIAL HISTORYFormer smoker, end date 12/15/2020. No alcohol use or drug use.FAMILY HISTORYNo significant family medical history.ADDITIONAL NOTESThe nursing notes have been reviewed with agreement regarding the chief complaint, HPI, ROS, PMH andpatient medications and allergies.PHYSICAL EXAMVital Signs: 01/09/2021 10:55 BP: 150/100. MAP: 116. HR: 106. RR: 20. O2 saturation: 99%. Temp: 98.1F. Pain level now: 07/18. Have been reviewed. Oxygen saturation normal.Appearance: Alert. Oriented X3. No acute distress. Anxious.Eyes: Pupils equal, round and reactive to light. Eyes normal inspection.ENT: Nose normal.Neck: Normal inspection. Neck supple.CVS: Normal heart rate and rhythm. Heart sounds normal. Pulses normal.Respiratory: No respiratory distress. Painless inspiration. Breath sounds normal. Chest nontender.Abdomen: Soft and nontender. Bowel sounds normal. No organomegaly. No mass. Femoral pulsesequal.Back: Normal external inspection.Skin: Skin warm and dry. Normal skin color. No rash. Normal skin turgor.Extremities: Extremities exhibit normal ROM. No lower extremity edema.Neuro: Oriented X 3. No motor deficit. No sensory deficit.LABS, X-RAYS, AND EKGEKG: No acute process. No acute ischemia. Normal EKG. Normal sinus rhythm. Rate: 92/min.Normal ST and T waves. Prior EKG unavailable. The study has been interpreted contemporaneously byme. The EKG appears to be a good tracing. Interpretation time: 11:07 01/09/2021.Chest X-ray: No acute disease. Views: AP (portable). Technique: good. The X-rays were interpretedby the radiologist. Interpretation time: 11:29 01/09/2021.Laboratory Tests: Laboratory tests have been ordered, with results reviewed and considered in themedical decision making process. Troponin-T: (YOLANDA: 01/09/2021 14:57) ( [facility] 01/09/2021 15:37) Final results Test Result Flag Units (Reference) TROPONIN T <0.01 NG/ML (0.00 - 0.10) TROPONIN T0.1 ng/ml Recommended as the clinical threshold value forTroponin T. CBC w Diff: (YOLANDA: 01/09/2021 11:35) ( [facility] 01/09/2021 11:48) Final results Test Result Flag Units (Reference) CBC W/AUTOMATED DIFF COMPLETE BLOOD COUNT 3 Clinical Report - Physicians/Mid Levels [facility] Emergency Department [address] [place] [address] Phone #: ext- [phone] 01/09/2021 10:52 Patient: ABIDA MEDRANO Sex: M : 1985 Age: 35y WBC 9.6 10/uL (4.2 - 11.0) RBC 5.38 10/uL (4.50 - 6.30) HEMOGLOBIN 16.2 H g/dL (14.0 - 16.0) HEMATOCRIT 47.2 % (41.0 - 51.0) MCV 87.7 fL (80.0 - 94.0) MCH 30.1 pg (27.0 - 34.0) MCHC 34.3 g/dL (31.0 - 36.0) RDW 12.6 % (11.5 - 14.8) PLATELETS 320 10/uL (150 - 450) MPV 9.2 fL (7.4 - 10.4) NEUT 57.2 % (37.0 - 80.0) LYMPH 30.0 % (25.0 - 40.0) MONO 10.0 H % (3.0 - 8.0) EOS 1.8 % (0.0 - 7.0) BASO 0.6 % (0.0 - 2.0) %IG 0.4 H % (0.0 - 0.0) %NRBC 0.0 % (0.0 - 0.0) #NEUT 5.48 10/uL (2.00 - 6.90) #LYMPH 2.87 10/uL (0.60 - 3.40) #MONO 0.96 H 10/uL (0.00 - 0.90) #EOS 0.17 10/uL (0.00 - 0.70) #BASO 0.06 10/uL (0.00 - 0.20) #IG 0.04 10/uL (0.00 - 0.10) #NRBC 0.00 10/uL (0.00 - 0.00) MANUAL DIFF NOT INDICATED RBC MORPH NOT INDICATEDCMP: (YOLANDA: 01/09/2021 11:35) ( MsgRcvd 01/09/2021 12:19) Final results Test Result Flag Units (Reference) COMPREHENSIVE METABOLIC PANEL COMPREHENSIVE METABOLIC PANEL SODIUM 141 mEq/L (134 - 153) POTASSIUM 4.3 mEq/L (3.6 - 5.0) CHLORIDE 104 mEq/L (98 - 107) CO2 23 MEQ/L (22 - 30) GLUCOSE 133 H MG/DL (70 - 99) BUN 10 MG/DL (7 - 21) CREATININE 0.9 MG/DL (0.7 - 1.5) BUN/CREAT 11 (8 - 27) TOTAL PROTEIN 7.6 G/DL (6.3 - 8.2) ALBUMIN 4.6 G/DL (3.9 - 5.0) GLOBULIN 3.0 GM/DL (2.4 - 3.2) A/G RATIO 1.5 (0.8 - 2.0) CALCIUM 10.1 MG/DL (8.4 - 10.2) TOTAL BILI <0.7 MG/DL (0.2 - 1.3) ALKALINE PHOS 47 U/L (38 - 126) SGOT/AST 60 H U/L (5 - 40) SGPT/ALT 98 H U/L (7 - 56) ANION GAP 14.0 mmol/L (8.0 - 16.0) AGE 35 yrs NON-AA GFR >60 mL/min AFR AMER GFR >60 mL/min Male GFR Interprentation 20-49 yrs >60 mL/min Ffdrna04-42 yrs >56 mL/min Normal 60-69 yrs >49 mL/min Normal 70-79yrs>42 mL/min Normal 80 and above >35 mL/min Normal Female GFRInterpretation 20-39 yrs >60 mL/min Normal 40-49 yrs >58 mL/minNormal 50-59 yrs >51 mL/min Normal 60-69 yrs >45 mL/min Moekhm10-88 yrs >39 mL/min Normal 80 and above >32 mL/min Normal 4 Clinical Report - Physicians/Mid Levels [facility] [facility] Emergency Department [address] [place] [address] Phone #: ext- [phone] 01/09/2021 10:52 Patient: ABIDA MEDRANO Sex: M : 1985 Age: 35yLipase: (YOLANDA: 01/09/2021 11:35) ( [facility] 01/09/2021 12:18) Final results Test Result Flag Units (Reference) LIPASE 23 U/L (13 - 60)Troponin-T: (YOLANDA: 01/09/2021 11:35) ( [facility] 01/09/2021 12:06) Final results Test Result Flag Units (Reference) TROPONIN T <0.01 NG/ML (0.00 - 0.10) TROPONIN T0.1 ng/ml Recommended as the clinical threshold value forTroponin T.EKG: (YOLANDA: 01/09/2021 11:20) ( [facility] 01/09/2021 15:00) [facility]: (YOLANDA: 01/09/2021 11:20) ( [facility] 01/09/2021 14:32) Final results [place] [address] PHONE: [phone] FAX: [phone] Name .................. : MARCELA TAI Acct Number.................. : [id number] ROOM. ................. : TR-08 MR Number ................... : [id number] Stay type ............. : E/R Discharge Date......... ... : Admit Date ......... : 01/09/21 Admit Phys .................... : BENJAMIN VASQUEZ Date of ....... : 1985 Family Phys ................... : NO PCP Phone .................. : [phone] Age ................................ : 35 Film# .................. .:[id number] Sex ................................. : M Unsigned transcriptions are preliminary reports and do not represent a medical or legal document CHEST PORTABLE [id number] COMPLETE:01/09/21 11:20 Reason(s): Chest Pain PORTABLE CHEST SINGLE VIEW 11:38 AM HISTORY: Pain COMPARISON: None. FINDINGS: Mediastinal and hilar structures are normal. Cardiac silhouette is unremarkable. Lungs are clear. No pulmonary edema. No pleural effusions or pneumothorax. IMPRESSION: No acute disease. Electronically Reviewed and Signed By Gabriel Jones MD , 01/09/21 14:32, JWS Transcribe Initials: SSR, Transcribe Date: 01/09/21 12:42, Dictation Date: 5 Clinical Report - P hysicians/Mid Levels [facility] Emergency Department [address] [place] [address] Phone #: ext- [phone] 01/09/2021 10:52 Patient: ABIDA MEDRANO Sex: M : 1984 Age: 35y Copy for: 010 EMERGENCY SRV Copy for: EMERGENCY DEPT via modem Copy for: 710 MED REC Page 1 of 1.PROGRESS AND PROCEDURESCourse of Care: 12:52 01/09/21. workup all in and nml except mild elevation AST/ALT, CXR, EKG nml,troponin nml, no beds at [facility], will repeat troponin in 3 hrs, atypical CP, BP and pulse nml now, anxiety,stress? 15:58 01/09/21. 3 hrs troponin negative; pt still pain free w nml vitals; will d/c home w instructions, will refer to cardiology for stress test, pt understands and agrees. Patient counseled in person regarding the patient's stable condition, test results, diagnosis and need for follow-up. Patient agrees with plan of care. Disposition: Condition: good and stable. Discharge decision based on the following: patient's condition is stable; patient's condition is improved; patient is ambulatory; patient is active; patient drinking fluids; patient eating; patient's pain is controlled; patient's exam is improved; no abnormal test results; improving condition on multiple repeat evaluations; social support is good; transportation is available; follow-up is available; clinical impression is consistent with outpatient treatment.CLINICAL IMPRESSION Atypical chest pain Essential hypertension.INSTRUCTIONS No strenuous activity until released. Avoid stimulants (such as cigarettes, coffee, cold medicines, sinus medicines, street drugs). Follow a low salt diet and low cholesterol diet. Do not smoke. No alcohol. Warnings: Further evaluation is necessary in order to conduct further tests (CARDIOLOGY). It is very important to follow up with a healthcare provider. 6 Clinical Report - Physicians/Mid Levels [facility] Emergency Department [address] [place] [address] Phone #: ext- [phone] 01/09/2021 10:52 Patient: ABIDA MEDRANO Sex: M : 1985 Age: 35y GENERAL WARNINGS: Return or contact your physician immediately if your condition worsens or changes unexpectedly, if not improving as expected, or if other problems arise. SPECIFICALLY, return if you develop chest, neck, jaw, shoulder, arm, or back pain, difficulty breathing, a fluttering sensation in your chest, lightheadedness, fainting, excessive fatigue, or sudden sweating. Your Current Medications: Your current home medications have been reviewed. CONTINUE TAKING THE FOLLOWING MEDICATIONS: Aspirin Oral : Tablet Chewable 81 mg. Cetirizine HCl Oral. Prescription Medications: Toprol XL 25 mg tablet,extended release Take 1 tablet once a day for 30 days -- Dispense 30 tablet. Refills: 2. Substitution permitted. Pharmacy - [facility] [phone] ; [place] [address]. . Follow- up: Return to the emergency department as needed. Follow up with a senior business process analyst in three days even if well. Call for an appointment. Reason for referral: evaluation, treatment and STRESS TEST. Summary of care provided to patient via paper. Understanding of the discharge instructions verbalized by patient. Expected course of illness, discharge instructions, activity level, diet, follow-up appointment and risks and benefits of treatment reviewed with patient and understanding verbalized. Agrees to plan of care. Follow-up with: Fabien Holly MD, Cardiology, , [address] [place] [address], [address] Follow up in three days even if well. Call for an appointment. Reason for referral: evaluation, treatment and STRESS TEST. Summary of care provided to patient via paper.(Electronically signed by Morris Cary M.D. 01/09/2021 17:32) Name Value Range Interpretation Code Description Data Lore rce(s) Supporting Document(s) ID Date Data Source [id number] 01/09/2021 02:32:00 PM EDT [address] [address] PHONE: [phone] FAX: [phone] Name .................. : MARCELA TAI Acct Number.................. : [id number] ROOM. ................. : TR-08 Number ................... : [id number] Stay type ............. : E/R Discharge Date......... ... : Admit Date ......... : 05/31 Admit Phys .................... : BENJAMIN VASQUEZ Date of ....... : 1985 Family Phys ................... : NO PCP Phone .................. : [phone] Age ................................ : 35 Film# .................. .:[id number] Sex ................................. : M Unsigned transcriptions are preliminary reports and do not represent a medical or legal document CHEST PORTABLE [id number] COMPLETE:01/09/21 11:20 Reason(s): Chest Pain PORTABLE CHEST SINGLE VIEW 11:38 AM HISTORY: Pain COMPARISON: None. FINDINGS: Mediastinal and hilar structures are normal. Cardiac silhouette is unremarkable. Lungs are clear. No pulmonary edema. No pleural effusions or pneumothorax. IMPRESSION: No acute disease. Electronically Reviewed and Signed By Gabriel Jones MD , 01/09/21 14:32, JESSICA Transcribe Initials: SSR, Transcribe Date: 01/09/21 12:42, Dictation Date: Copy for: 010 EMERGENCY SRV Copy for: EMERGENCY DEPT via modem Copy for: 710 MED REC Page 1 of 1 Name Value Range Interpretation Code Description Data Lore rce(s) Supporting Document(s) ID Date Data Source [id number] 01/09/2021 03:37:00 PM EDT [facility] Name Value Range Interpretation Code Description Data Lore rce(s) Supporting Document(s) TROPONIN T <0.01 NG/ML 0.00 - 0.10 [facility] ospital TROPONIN T0.1 ng/ml Recommended as the c linical threshold value Rochelleropocaitlyn T. ID Date Data Source [id number] 01/09/2021 12:19:00 PM EDT [facility] Name Value Range Interpretation Code Description Data Lore rce(s) Supporting Document(s) COMPREHENSIVE METABOLIC PANEL [facility] COMPREHENSIVE METABOLIC PANEL Sodium [Moles/volume] in Serum or Plasma 141 mEq/L 134 - 153 [facility] Potassium [Moles/volume] in Serum or Plasma 4.3 mEq/L 3.6 - 5.0 [facility] Chloride [Moles/volume] in Serum or Plasma 104 mEq/L 98 - 107 [facility] Carbon dioxide, total [Moles/volume] in Serum or Plasma 23 MEQ/L 22 - 30 [facility] Glucose [Mass/volume] in Serum or Plasma 133 MG/DL 70 - 99 H [facility] BUN 10 MG/DL 7 - 21 [facility] Creatinine [Mass/volume] in Serum or Plasma 0.9 MG/DL 0.7 - 1.5 [facility] BUN/CREAT 11 8 - 27 [facility] al Protein [Mass/volume] in Serum or Plasma 7.6 G/DL 6.3 - 8.2 [facility] Albumin [Mass/volume] in Serum or Plasma 4.6 G/DL 3.9 - 5.0 [facility] Globulin [Mass/volume] in Serum by calculation 3.0 GM/DL 2.4 - 3.2 [facility] A/G RATIO 1.5 0.8 - 2.0 [facility] al Calcium [Mass/volume] in Serum or Plasma 10.1 MG/DL 8.4 - 10.2 [facility] Bilirubin.total [Mass/volume] in Serum or Plasma <0.7 MG/DL 0.2 - 1.3 [facility] Alkaline phosphatase [Enzymatic activity/volume] in Serum or Plasma 47 U/L 38 - 126 [facility] Aspartate aminotransferase [Enzymatic activity/volume] in Serum or Plasma 60 U/L 5 - 40 [facility] Alanine aminotransferase [Enzymatic activity/volume] in Seru m or Plasma 98 U/L 7 - 56 H [facility] Anion gap 3 in Serum or Plasma 14.0 mmol/L 8.0 - 16.0 [facility] AGE 35 yrs [facility] Hospit al NON-AA GFR >60 mL/min [facility] Hosp ital AFR AMER GFR >60 mL/min [facility] Ho spital Male GFR In terprentation 20-49 yrs >60 mL/min Normal 50-59 yrs >56 mL/min Normal 60-69 yrs >49 mL/min Normal 70-79yrs >42 mL/min Normal 80 and above >35 mL/min Normal Female GFR Interpretation 20-39 yrs >60 mL/min Normal 40-49 yrs >58 mL/min Normal 50-59 yrs >51 mL/min Normal 60-69 yrs >45 mL/min Normal 70-79 yrs >39 mL/min Normal 80 and above >32 mL/min Normal ID Date Data Source [id number] 01/09/2021 12:18:00 PM EDT [facility] Name Value Range Interpretation Code Description Data Lore rce(s) Supporting Document(s) Lipase [Enzymatic activity/volume] in Serum or Plasma 23 U/L 13 - 60 [facility] ID Date Data Source [id number] 01/09/2021 12:06:00 PM EDT [facility] Name Value Range Interpretation Code Description Data Lore rce(s) Supporting Document(s) TROPONIN T <0.01 NG/ML 0.00 - 0.10 [facility] ospital TROPONIN T0.1 ng/ml Recommended as the c linical threshold value forTroponin T. ID Date Data Source [id number] 01/09/2021 11:48:00 AM T [facility] Name Value Range Interpretation Code Description Data Lore rce(s) Supporting Document(s) CBC W/AUTOMATED DIFF [facility] COMPLETE BLOOD COUNT Leukocytes [#/volume] in Blood by Automated count 9.6 10^3/uL 4.2 - 1 1.0 [facility] Erythrocytes [#/volume] in Blood by Automated count 5.38 10^6/uL 4. 50 - 6.30 [facility] Hemoglobin [Mass/volume] in Blood 16.2 g/dL 14.0 - 16.0 H [facility] Hematocrit [Volume Fraction] of Blood by Automated count 47.2 % 4 1.0 - 51.0 [facility] Erythrocyte mean corpuscular volume [Entitic volume] by Auto mated count 87.7 fL 80.0 - 94.0 [facility] Erythrocyte mean corpuscular hemoglobin [Entitic mass] by Automated count 30.1 pg 27.0 - 34.0 [facility] Erythrocyte mean corpuscular hemoglobin concentration [Mass/volume] by Automated count 34.3 g/dL 31.0 - 36.0 [facility] Erythrocyte distribution width [Ratio] by Automated count 12.6 % 11.5 - 14.8 [facility] Platelets [#/volume] in Blood by Automated count 320 10^3/uL 150 - 45 0 [facility] Platelet mean volume [Entitic volume] in Blood by Automated count 9.2 fL 7.4 - 10.4 [facility] Neutrophils/100 leukocytes in Blood by Automated count 57.2 % 37. 0 - 80.0 [facility] Lymphocytes/100 leukocytes in Blood by Manual count 30.0 % 25.0 - 40.0 [facility] Monocytes/100 leukocytes in Blood by Automated count 10.0 % 3.0 - 8.0 H [facility] Eosinophils/100 leukocytes in Blood by Automated count 1.8 % 0.0 - 7.0 [facility] Basophils/100 leukocytes in Blood by Automated count 0.6 % 0.0 - 2.0 [facility] %IG 0.4 % 0.0 - 0.0 [facility] %NRBC 0.0 % 0.0 - 0.0 [facility] al Neutrophils [#/volume] in Blood by Automated count 5.48 10^3/uL 2.00 - 6.90 [facility] Lymphocytes [#/volume] in Blood by Automated count 2.87 10^3/uL 0.60 - 3.40 [facility] Monocytes [#/volume] in Blood by Automated count 0.96 10^3/uL 0.00 - 0.90 H [facility] Eosinophils [#/volume] in Blood by Automated count 0.17 10^3/uL 0.00 - 0.70 [facility] Basophils [#/volume] in Blood by Automated count 0.06 10^3/uL 0.00 - 0.20 [facility] #IG 0.04 10^3/uL 0.00 - 0.10 [facility] ospital #NRBC 0.00 10^3/uL 0.00 - 0.00 [facility] ospital MANUAL DIFF NOT INDICATED [facility] RBC MORPH NOT INDICATED [facility] spital ID Date Data Source [id number] 12/26/2020 08:45:00 AM EDT [facility] Name Value Range Interpretation Code Description Data Lore rce(s) Supporting Document(s) SARS-CoV-2 RNA Resp Ql GRACIA+probe NOT DETECTED [facility] This lab was ordered by JESS rausch and reported by JESS Ha. Procedure Social History No Information Vital Signs ID Date Data Source UNK Name Value Range Interpretation Code Description Data Source(s) Respiratory rate 16 /min 16 /min MEDENT ( Fabien Holly MD) Heart rate 76 /min 76 /min MEDENT (Fabien Holly MD) Oxygen saturation in Arterial blood by Pulse oximetry 98 % 98 % MEDENT (Fabien Holly MD) Body height 74 [in_i] 74 [in_i] MEDENT (Fabien Holly MD) 6'2" Body weight 285.50 [lb_av] 285.50 [lb_av] MEDEN T (Fabien Holly MD) Body mass index (BMI) [Ratio] 36.7 kg/m2 36.7 k g/m2 MEDENT (Fabien Holly MD) Body temperature 98.1 [degF] 98.1 [degF] MEDENT (Fabien Holly MD) Systolic blood pressure 127 mm[Hg] 127 mm[Hg] M EDENT (Fabien Holly MD) Diastolic blood pressure 84 mm[Hg] 84 mm[Hg] MEDENT (Fabien Holly MD) Respiratory rate 18 /min 18 /min MEDENT ( Fabien Holly MD) Diastolic blood pressure 106 mm[Hg] 106 mm[Hg] MEDENT (Fabien Holly MD) Body weight 281.25 [lb_av] 281.25 [lb_av] MEDEN T (Fabien Holly MD) Body mass index (BMI) [Ratio] 36.1 kg/m2 36.1 k g/m2 MEDENT (Fabien Holly MD) Body temperature 98.5 [degF] 98.5 [degF] MEDENT (Fabien Holly MD) Systolic blood pressure 148 mm[Hg] 148 mm[Hg] M EDENT (Fabien Holly MD) Heart rate 129 /min 129 /min MEDMYCHAL (Fabien Holly MD) Oxygen saturation in Arterial blood by Pulse oximetry 97 % 97 % MEDMYCHAL (Fabien Holly MD) Body height 74 [in_i] 74 [in_i] KAITENT (Fabien Holly MD) 6'2"
--- OUTSIDE RECORDS SUMMARY | 2021-04-21 03:18 | CCD ---
Continuity of Care Document (CCD) Created on: 04/15/2021 John Schaefer External Reference #: [id number] : [id number] Sex: Male Author Author John VANEGAS Organization Unknown Address [address] [facility] [address] [place] [address] Phone [phone] Care Team Providers Care Equipment Planner Name Role Phone RAYMOND MORA AUTM [phone] Problems Active Problems Provider Date Essential [...] 18 /min Procedures Date Code Description Status 04/15/2021 22570 Office/Outpatient Established Mo d MDM 30-39 Min Completed 03/14/2021 72457 Office/Outpatient Established Lo w MDM 20-29 Min Completed 01/10/2021 55907 Office/Outpatient New Low MDM 30 -44 Minutes Completed Encounters Type Date Location Provider Dx Diagnosis Office Visit 04/15/2021 8:45a [facility] PABLO Miner I10 Essential (primary) hypertension R53.83 Other fatigue R73.03 Prediabetes Office Visit 03/14/2021 9:30a [facility] PABLO Joseph I10 Essential (primary) hyperten frantz J02.0 Streptococcal pharyngitis Office Visit 01/10/2021 3:00p [facility] PABLO Joseph I10 Essential (primary) hyperten frantz J30.9 Allergic rhinitis, unspecifi ed Assessments Date Code Description Provider 04/15/2021 I10 Essential (primary) hypertension PABLO Knott 04/15/2021 R53.83 Other fatigue PABLO Knott 04/15/2021 R73.03 Prediabetes PABLO Knott 03/14/2021 I10 Essential (primary) hypertension PABLO Andre 03/14/2021 J02.0 Streptococcal pharyngitis PABLO Mendiola 01/10/2021 I10 Essential (primary) hypertension PABLO Andre 01/10/2021 J30.9 Allergic rhinitis, unspecified F redPABLO Ventura Plan of Treatment Future Appointment(s):* 07/15/2021 8:30 am - PABLO Knott at [facility] 04/15/2021 - PABLO Knott* I10 Essential (primary) [...] R53.83 Other fatigue* Comments:* Will obtain labs including Thyroid panel * R73.03 Prediabetes Referrals Refer to Dr Magaña for Referral Status Appt Date Fabien Holly M.D. PATIENT WITH C/O CHEST PRESU RE. PLEASE DO CARDIAC CONSULT. Closed 02/06/[address] [place], [place] [id number] [phone]
--- OUTSIDE RECORDS SUMMARY | 2021-04-21 03:18 | CCD | Continuity of Care Document ---
Author Author John MORA Organization Unknown Address [address] [facility] [address] [place] [address] Phone [phone] Care Team Providers Care Hospitality Team Member Name Role Phone RAYMOND MORA AUTM [phone] Social History Type Date Description Comments Sex Unknown Vital Signs Date Vital Result Comment 03/14/2021 9:27am Height 74 inches 6'2" Weight 281.25 lb BMI (Body Mass Index) 36.1 kg/m2 Body Temperature 98.5 F BP Systolic 148 mmHg BP Diastolic 106 mmHg Heart Rate 129 /min O2 % BldC Oximetry 97 % Respiratory Rate 18 /min Procedures Date Code Description Status 03/14/2021 13050 Office/Outpatient Established Lo w MDM 20-29 Min Completed 01/10/2021 46959 Office/Outpatient New Low MDM 30 -44 Minutes Completed Encounters Type Date Location Provider Dx Diagnosis Office Visit 03/14/2021 9:30a [facility] PABLO Joseph I10 Essential (primary) hyperten frantz J02.0 Streptococcal pharyngitis Office Visit 01/10/2021 3:00p [facility] PABLO Joseph I10 Essential (primary) hyperten frantz J30.9 Allergic rhinitis, unspecifi ed Assessments Date Code Description Provider 03/14/2021 I10 Essential (primary) hypertension PABLO Andre 03/14/2021 J02.0 Streptococcal pharyngitis PABLO Mendiola 01/10/2021 I10 Essential (primary) hypertension PABLO Andre 01/10/2021 J30.9 Allergic rhinitis, unspecified F PABLO Dolan Plan of Treatment Future Appointment(s):* 04/15/2021 8:30 am - PABLO Andre at [facility] Referrals Refer to Reason for Referral Status Appt Date Fabien Holly M.D. PATIENT WITH C/O CHEST PRESU RE. PLEASE DO CARDIAC CONSULT. Closed 02/06/[address] [place], [place] [id number] [phone]
--- OUTSIDE RECORDS SUMMARY | 2021-04-21 04:51 | CCD ---
Author Author [facility] Organization [facility] Address Unknown Phone Unavailable Care Team Providers Care Drag Sawyer Name Role Phone Moiz Bullard Unavailable Unavailable [...] is protected by Article 27-F of the [facility] Public Health law. If you continue you may have access to information: Regarding HIV / AIDS; Provided by facilities licensed or operated by the [facility] Office of Mental Health; or Provided by the [facility] Office for People With Developmental Disabilities. If such information is present, then the following [facility] mandated warning applies: This information has been [...] law may result in a fine or fdc sentence or both. A general authorization for the release of medical or other information is NOT sufficient authorization for further disc losure. Encounters Encounter Providers Location Date Indications Data Source(s ) Outpatient Attender: Breana Bullard [facility] 07:45:00 AM EST MEDMYCHAL (Fabien Holly MD) Outpatient Attender: RAYMOND MORA [facility] 03/14/2021 09:30:00 AM EDT MEDMYCHAL (Fabien Holly MD) Outpatient Attender: DIONE WEISS NP 02/10 08:13:40 AM EDT - 03/09/2021 08:32:34 AM EDT [facility] ([facility] ) Outpatient Attender: RAYMOND MORA [facility] 01/10/2021 03:00:00 PM EDT MEDMYCHAL (Fabien Holly MD) Emergency Attender: MORRIS De Los Santossultant: PCP NO 01/09/2021 10:55:00 AM EDT - 01/09/2021 04:11:00 PM EDT [facility] Patient discharged. Outpatient Attender: KEVIN LEBRON RPA 12/26 08:32:08 AM EDT - 12/26/2020 08:52:23 AM EDT [facility] ([facility] ) Immunizations Vaccine Date Status Description Data Source(s) COVID-19 VACCINE Moderna 04/16/2021 12:00:00 AM EST completed [facility] Vaccine Series Complete: YESThis Data wa s Submitted to [facility] Via REHAPP. COVID-19 VACCINE Moderna 08/30/2020 12:00:00 AM EDT completed [facility]IS Vaccine Series Complete: YESThis Data wa s Submitted to [facility] Via DrivableIS. COVID-19 VACCINE Moderna 08/02/2020 12:00:00 AM EDT completed [facility]IS Vaccine Series Complete: NOThis Data was Submitted to [facility] Via REHAPP. Medications Medication Brand Name Start Date Product Form Dose Route Admi nistrative Instructions Pharmacy Instructions Status Indications Reaction Description Data Source(s) Amoxicillin 875 MG Oral Tablet Amoxicillin 02/22/2020 12:00:00 AM EDT ORAL active [facility] ([facility]) Insurance Providers Payer name Policy type / Coverage type Policy ID Covered constitution party ID Covered constitution party's relationship to galeana Policy Galeana Plan Information [employer] and Blue Shield [place] Blue Cross/B lue Shield [id number] Self [id number] BLUE CROSS BLUE SHIELD -O/P [id number] 18 [id number] BCBS [place] WATN PPO [id number] SP [id number] ANSI-Commercial [id number] EXCELLUS BCBS B [id number] S [id number] BS [place] Commercial [id number] Self [id number] SP [id number] BLUE CROSS [id number] [place] [id number] SP [id number] Problems, Conditions, and Diagnoses Code Display Name Description Problem Type Effective Dates Data Source(s) Y08660 Personal history of nicotine dependence Personal history of nicotine dependence Diagnosis 01/09/2021 10:55:00 AM [facility] Z7982 correction (current) use of aspirin 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) use of aspirin Diagnosis 01/09/2021 10:55:00 AM [facility] I10 Essential (primary) hypertension Essential (primary) h ypertension Diagnosis 01/09/2021 10:55:00 AM [facility] R0789 Other chest pain Other chest pain Diagnosis 01/09/2021 10 :55:00 AM [facility] [id number] Essential hypertension Essential hypertension Problem 04/15/2021 12:00:00 [...] Holly MD) Results ID Date Data Source [id number] 04/15/2021 09:00:00 AM EST [facility] (Fabien Holly MD) Name Value Range Interpretation Code Description Data Lore rce(s) Supporting Document(s) Hemoglobin A1c/Hemoglobin.total in Blood 5.8 %oftotalHgb A juany high normal [facility] (Fabien Holly MD) FASTING:YES FASTING: YES Laboratory test finding (navigational concept) Laboratory test result [facility] (Fabien Holly MD) FASTING:YES FASTING: YES ID Date Data Source [id number] 04/15/2021 09:00:00 AM EST [facility] (Fabien Holly [...] FASTING:YES FASTING: YES ID Date Data Source [id number] 04/15/2021 09:00:00 AM EST MEDMYCHAL (Fabien Holly [...] Holly MD) FASTING:YES FASTING: YES eGFR Non-Afr. Rwandan 110 mL/min/1.73m2 Normal (applies to non-numeric results) [...] FASTING:YES FASTING: YES ID Date Data Source [id number] 03/09/2021 08:30:00 AM [facility]T [facility] Name Value Range Interpretation Code Description Data Lore rce(s) Supporting Document(s) SARS-CoV-2 RNA Resp Ql GRACIA+probe DETECTED [facility] This lab was ordered by JESS rausch and reported by JESS Ha. ID Date Data Source [id number] 01/09/2021 08:30:00 [place] [address] RESPIRATORY CARE REPORT ==== ---------NAME------- NUMBER SEX AGE ADMIT DISC. XRAY# F/C OTFLASHANDAELIDIA SANABRIAMARKTOSHIA [id number] M 35 01/09/21 01/09/21 [id number] E/R DATE OF : 1985 M/R# [id number] #: [id number] TR-08 LOC[facility] [id number] COMPLE TE:01/09/21 14:59 ED [id number] PHYSICIAN: BENJAMIN VASQUEZ Name Value Range Interpretation Code Description Data Lore rce(s) Supporting Document(s) ID Date Data Source [id number] 01/09/2021 10:55:00 AM EDT [facility] 1 OrderSheet [facility] Emergency Department [address] [place] [address] Phone #: ext- [phone] 01/09/2021 10:52 Patient: [...] 11:27 Morris Perez RN, M.D.; 2 OrderSheet [facility] Emergency Department [address] [place] [address] Phone #: ext- [phone] 01/09/2021 10:52 Patient: ABIDA MEDRANO [facility]#: [id number] Sex: M : 1985 Age: 35yNitroGLYCERIN 11:20 01/09/2021 11:30 RoeTopical Ointment Morris Cary RN0.5 inJayashree Fine;GENERAL ORDERSOrder Description Priority Entered Acknowledged InitialedBlood Pressure 11:01/09/2021 11:22 Kateitor Morris Cary RN, M.D.;Blunger 11:01/09/2021 11:22 Roe(continuous) Morris Cary RN, M.D.;EKG [...] rce(s) Supporting Document(s) ID Date Data Source [id number] 01/09/2021 10:55:00 AM EDT [facility] 1 Medication Reconciliation Report [facility] Emergency Department [address] [place] [address] Phone #: ext- [phone] 01/09/2021 10:52 Patient: [...] Dispense 30 tablet.Refills: 2. Substitution permitted.Pharmacy - [facility] [phone] ; [place] [address]. . -- Morris Cary M.D. Name Value Range Interpretation Code Description Data Lore rce(s) Supporting Document(s) ID Date Data Source [id number] 01/09/2021 10:55:00 AM EDT [facility] 1 Medication Administration Record [facility] Emergency Department [address] [place] [address] Phone #: ext- [phone] 01/09/2021 10:52 Patient: ABIDA MEDRANO Sex: M : 1985 Age: 35yWeight: 131.3 kgHeight/Length: 74 inBMI: 37.2ALLERGIES: No Known Drug Allergy Date/Time Medication Administered Medication OrderedGiven ASPIRIN CHEWABLE 81 MG [PO] Aspirin PO Chewable 81 mg 19161:01/09/2021 Dose: 324 mg Tablets PO Dwayne Mercado RNGiven LOPRESSOR [PO] (METOPROLOL Lopressor PO 25 mg11:27 01/09/2021 TARTRATE)Roe Mercado RN Dose: 25 mg Tablets POGiven NITROGLYCERIN [TOPICAL OINTMENT] NitroGLYCERIN Kdbzfju89:30 01/09/2021 Dose: 0.5 in. Ointment Topical Ointment 0.5 in.Roe Mercado RN Name Value Range Interpretation Code Description Data Lore rce(s) Supporting Document(s) ID Date Data Source [id number] 01/09/2021 10:55:00 AM EDT [facility] 1 General Instructions [facility] Emergency Department [address] [place] [address] Phone #: ext [phone] 01/09/2021 10:52 Patient: ABIDA MEDRANO Sex: M [...] Dispense 30 tablet.Refills: 2. Substitution permitted.Pharmacy - [facility] [phone] ; [place] [id number]. .Follow-up:Return to the emergency department as needed. Follow up with a specialty sales consultant in three days even if well.Call for an appointment. Reason for referral: evaluation, treatment and STRESS TEST. Summary of careprovided to patient via paper.Understanding of the discharge instructions verbalized by patient. Expected course of illness, dischargeinstructions, activity level, diet, follow-up appointment and risks and benefits of treatment reviewed withpatient and understanding verbalized. Agrees to plan of care.Follow-up with: Fabien Holly MD, Cardiology, , [address] [place] [address], [address] Follow up in three days even if well. Call for an appointment. Reason for referral: evaluation, treatment 2 General Instructions [facility] Emergency Department [address] [place] [address] Phone #: ext- [phone] 01/09/2021 10:52 Patient: ABIDA MEDRANO Sex: M [...] the lungs (pleural effusion) 3 General Instructions [facility] Emergency Department [address] [place] [address] Phone #: ext- [phone] 01/09/2021 10:52 Patient: [...] start to feel better in 24 hours.Call [phone] if any of these occur: A change in the type of pain: if it feels different, becomes more severe, lasts longer, or begins to spread into your shoulder, arm, neck, jaw or back Shortness of breath or increased pain with breathing Weakness, dizziness, or fainting 4 General Instructions [facility] Emergency Department [address] [place] [address] Phone #: ext- [phone] 01/09/2021 10:52 Patient: ABIDA MEDRANO Sex: M : 1985 Age: 35y Rapid heart beat Crushing sensation in your chestWhen to seek medical adviceCall your healthcare provider right away if any of these occur: Cough with dark colored sputum (phlegm) or blood Fever of 100.4F (38C) or higher, or as directed by your healthcare provider Swelling, pain or redness in one leg 4900-3573 [employer]. [address] [place] [address]. All rights reserved. This information is not [...] 2 high blood pressure: 5 General Instructions [facility] Emergency Department [address] [place] [address] Phone #: ext- [phone] 01/09/2021 10:52 Patient: [...] that have heart stimulants. This includes many tldm-miz-wtfuvem cold and sinus decongestant pills and sprays, as well as diet pills. Check the warnings about high blood pressure on the label. Before purchasing any gzfy-omo-zsiboef medicines or supplements, always ask the pharmacist [...] Enroll in a stop-smoking 6 General Instructions [facility] Emergency Department [address] [place] [address] Phone #: ext- [phone] 01/09/2021 10:52 Patient: [...] get one of these at most pharmacies.The [place] [employer] Association recommends the following guidelines for [...] frightened by a single high 7 General [facility] Emergency Department [address] [place] [address] Phone #: ext- [phone] 01/09/2021 10:52 Patient: [...] face You have problems speaking or seeing 6388-[address] [employer] [place] [address]. All rights reserved. This information is not intended as asubstitute for professional medical care. Always follow your healthcare professional's instructions. You have been given the following additional information: Chest Pain, Noncardiac Hypertension, New (Begin Treatment) 8 General Instructions [facility] Emergency Department [address] [place] [address] Phone #: [phone] kny- [phone] 01/09/2021 10:52 [id number] Sex: M : 1985 Age: 35yNo strenuous activity until released.(Electronically signed by Morris Cary M.D. 01/09/2021 17:32) Name Value Range Interpretation Code Description Data Lore rce(s) Supporting Document(s) ID Date Data Source [id number] 01/09/2021 10:55:00 AM EDT [facility] 1 Clinical Report - Nurses [facility] Emergency Department [address] [place] [address] Phone #: ext- [phone] 01/09/2021 10:52 [id number] Sex: M : 1985 Age: 35yTRIAGEArrived by [...] known problems.ADDITIONAL SURGERIES:Appendectomy. --10:57 01/09/21 Kaitlin Hdz R.N.Lcfkgtg15:00 01/09/21.PAST MEDICAL HX: Immunizations not up to date.SOCIAL HX: Former smoker, end date december 15 2020. No alcohol use or drug use. He was offered HIV 2 Clinical Report - Nurses [facility] Emergency Department [address] [place] [address] Phone #: ext- [phone] 01/09/2021 10:52 Patient: ABIDA MEDRANO Sex: M [...] monitor and pulse oximeter placed on patient; cardiac surgeon- 3 Clinical Report - Nurses [facility] Emergency Department [address] [place] [address] Phone #: ext- [phone] 01/09/2021 10:52 Patient: ABIDA MEDRANO Sex: M [...] Patient verbalized understanding. Written instructions provided in Korean. The patient was discharged by the physician. He was discharged home and accompanied by parent. He left ambulatory and via private vehicle. Parent driving. --16:10 01/09/21 Roe Mercado RN 16:06 01/09/21. BP: 106/71. MAP: 82. HR: 89. RR: 16. O2 saturation: 95%. Pain level now: 010. --16:10 01/09/21 Roe Mercado RN.Locked/Released at 01/09/2021 16:11 by Roe Mercado RN 4 Clinical Report - Nurses [facility] Emergency Department [address] [place] [address] Phone #: [phone] ext- [phone] 01/09/2021 10:52 Patient: ABIDA MEDRANO Sex: M : 1985 Age: 35y Name Value Range Interpretation Code Description Data Lore rce(s) Supporting Document(s) ID Date Data Source [id number] 01/09/2021 10:55:00 AM EDT [facility] 1 Clinical Report - Physicians/Mid Levels [facility] Emergency Department [address] [place] [address] Phone #: ext [phone] 01/09/2021 10:52 Patient: ABIDA MEDRANO Sex: M [...] associated diaphoresis. (pt was at work at [employer], started to sweat then felt off w [...] Drug Allergy. 2 Clinical Report - Physicians/Mid [facility] Emergency Department [address] [place] [address] Phone #: ext- [phone] 01/09/2021 10:52 Patient: [...] making process. Troponin-T: (YOLANDA: 01/09/2021 14:57) ( [facility] 01/09/2021 15:37) Final results Test Result Flag Units (Reference) TROPONIN T <0.01 NG/ML (0.00 - 0.10) TROPONIN T0.1 ng/ml Recommended as the clinical threshold value forTroponin T. CBC w Diff: (YOLANDA: 01/09/2021 11:35) ( [facility] 01/09/2021 11:48) Final results Test Result Flag Units (Reference) CBC W/AUTOMATED DIFF COMPLETE BLOOD COUNT 3 Clinical Report - Physicians/Mid Levels [facility] Emergency Department [address] [place] [address] Phone #: ext- [phone] 01/09/2021 10:52 Patient: [...] Male GFR Interprentation 20-49 yrs >60 mL/min Yqgypt84-57 yrs >56 mL/min Normal 60-69 yrs >49 mL/min Normal 70-79yrs>42 mL/min Normal 80 and above >35 mL/min Normal Female GFRInterpretation 20-39 yrs >60 mL/min Normal 40-49 yrs >58 mL/minNormal 50-59 yrs >51 mL/min Normal 60-69 yrs >45 mL/min Lubwjz61-06 yrs >39 mL/min Normal 80 and above >32 mL/min Normal 4 Clinical Report - Physicians/Mid Levels [facility] Emergency Department [address] [place] [address] Phone #: ext- [phone] 01/09/2021 10:52 Patient: ABIDA MEDRANO Sex: M : 1985 Age: 35yLipase: (YOLANDA: 01/09/2021 11:35) ( [facility] 01/09/2021 12:18) Final results Test Result Flag Units (Reference) LIPASE 23 U/L (13 - 60)Troponin-T: (YOLANDA: 01/09/2021 11:35) ( [facility] 01/09/2021 12:06) Final results Test Result Flag Units (Reference) TROPONIN T <0.01 NG/ML (0.00 - 0.10) TROPONIN T0.1 ng/ml Recommended as the clinical threshold value forTroponin T.EKG: (YOLANDA: 01/09/2021 11:20) ( [facility] 01/09/2021 15:00) [facility]: (YOLANDA: 01/09/2021 11:20) ( [facility] 01/09/2021 14:32) Final results [place] [address] PHONE: [phone] FAX: [phone] Name .................. : MARCELA TAI Acct Number.................. : [id number] ROOM. ................. : TR-08 MR Number ................... : [id number] Stay type ............. : E/R Discharge Date......... ... : Admit Date ......... : 01/09/21 Admit Phys .................... : BENJAMIN VASQUEZ Date of ....... : 1985 Family Phys ................... : NO PCP Phone .................. : [phone] Age ................................ : 35 Film# .................. .:[id number] Sex ................................. : M Unsigned transcriptions are preliminary reports and do not represent a medical or legal document CHEST PORTABLE [id number] COMPLETE:01/09/21 11:20 Reason(s): Chest Pain PORTABLE CHEST SINGLE VIEW 11:38 AM HISTORY: Pain COMPARISON: None. FINDINGS: Mediastinal and hilar structures are normal. Cardiac silhouette is unremarkable. Lungs are clear. No pulmonary edema. No pleural effusions or pneumothorax. IMPRESSION: No acute disease. Electronically Reviewed and Signed By Gbariel Jones MD , 01/09/21 14:32, JWS Transcribe Initials: SSR, Transcribe Date: 01/09/21 12:42, Dictation Date: 5 Clinical Report - P hysicians/Mid Levels [facility] Emergency Department [address] [place] [address] Phone #: ext- [phone] 01/09/2021 10:52 Patient: ABIDA MEDRANO Sex: M : 1984 Age: 35y Copy for: 010 EMERGENCY SRV Copy for: EMERGENCY DEPT via modem Copy for: 710 MED REC Page 1 of 1.PROGRESS AND PROCEDURESCourse of Care: 12:52 01/09/21. workup all in and nml except mild elevation AST/ALT, CXR, EKG nml,troponin nml, no beds at [facility], will repeat troponin in 3 hrs, atypical [...] provider. 6 Clinical Report - Physicians/Mid Levels [facility] Emergency Department [address] [place] [address] Phone #: ext- [phone] 01/09/2021 10:52 Patient: ABIDA MEDRANO Sex: M [...] tablet. Refills: 2. Substitution permitted. Pharmacy - [facility] [phone] ; [place] [address]. . Follow- up: Return to the emergency department as needed. Follow up with a specialty sales consultant in three days even if well. Call [...] Follow-up with: Fabien Holly MD, Cardiology, , [address] [place] [address], [address] Follow up in three days even if well. Call for an appointment. Reason for referral: evaluation, treatment and STRESS TEST. Summary of care provided to patient via paper.(Electronically signed by Morris Cary M.D. 01/09/2021 17:32) Name Value Range Interpretation Code Description Data Lore rce(s) Supporting Document(s) ID Date Data Source [id number] 01/09/2021 02:32:00 PM EDT [address] [address] PHONE: [phone] FAX: [phone] Name .................. : MARCELA TAI Acct Number.................. : [id number] ROOM. ................. : TR-08 Number ................... : [id number] Stay type ............. : E/R Discharge Date......... ... : Admit Date ......... : 05/31 Admit Phys .................... : BENJAMIN VASQUEZ Date of ....... : 1985 Family Phys ................... : NO PCP Phone .................. : [phone] Age ................................ : 35 Film# .................. .:[id number] Sex ................................. : M Unsigned transcriptions are preliminary reports and do not represent a medical or legal document CHEST PORTABLE [id number] COMPLETE:01/09/21 11:20 Reason(s): Chest Pain PORTABLE CHEST [...] rce(s) Supporting Document(s) ID Date Data Source [id number] 01/09/2021 03:37:00 PM EDT [facility] Name Value Range Interpretation Code Description Data Lore rce(s) Supporting Document(s) TROPONIN T <0.01 NG/ML 0.00 - 0.10 [facility] TROPONIN T0.1 ng/ml Recommended as the c linical threshold value Rochelleropocaitlyn T. ID Date Data Source [id number] 01/09/2021 12:19:00 PM EDT [facility] Name Value Range Interpretation Code Description Data Lore rce(s) Supporting Document(s) COMPREHENSIVE METABOLIC PANEL [facility] COMPREHENSIVE METABOLIC PANEL Sodium [Moles/volume] in Serum or Plasma 141 mEq/L 134 - 153 [facility] Potassium [Moles/volume] in Serum or Plasma 4.3 mEq/L 3.6 - 5.0 [facility] Chloride [Moles/volume] in Serum or Plasma 104 mEq/L 98 - 107 [facility] Carbon dioxide, total [Moles/volume] in Serum or Plasma 23 MEQ/L 22 - 30 [facility] Glucose [Mass/volume] in Serum or Plasma 133 MG/DL 70 - 99 H [facility] BUN 10 MG[facility]DL 7 - [facility] Creatinine [Mass/volume] in Serum or Plasma 0.9 MG/DL 0.7 - 1.5 [facility] BUN/CREAT 11 8 - 27 [facility] Protein [Mass/volume] in Serum or Plasma 7.6 G/DL 6.3 - 8.2 [facility] Albumin [Mass/volume] in Serum or Plasma 4.6 G/DL 3.9 - 5.0 [facility] Globulin [Mass/volume] in Serum by calculation 3.0 GM/DL 2.4 - 3.2 [facility] A/G RATIO 1.5 0.8 - 2.0 [facility] Calcium [Mass/volume] in Serum or Plasma 10.1 MG/DL 8.4 - 10.2 [facility] Bilirubin.total [Mass/volume] in Serum or Plasma <0.7 MG/DL 0.2 - 1.3 [facility] Alkaline phosphatase [Enzymatic activity/volume] in Serum or Plasma 47 U/L 38 - 126 [facility] Aspartate aminotransferase [Enzymatic activity/volume] in Serum or Plasma 60 U/L 5 - 40 H [facility] Alanine aminotransferase [Enzymatic activity/volume] in Seru m or Plasma 98 U/L 7 - 56 H [facility] Anion gap 3 in Serum or Plasma 14.0 mmol/L 8.0 - 16.0 [facility] AGE 35 yrs [facility] NON-AA GFR >60 mL/min [facility] AFR AMER GFR >60 mL/min [facility] Male GFR In terprentation 20-49 [...] >32 mL/min Normal ID Date Data Source [id number] 01/09/2021 12:18:00 PM EDT [facility] Name Value Range Interpretation Code Description Data Lore rce(s) Supporting Document(s) Lipase [Enzymatic activity/volume] in Serum or Plasma 23 U/L 13 - 60 [facility] ID Date Data Source [id number] 01/09/2021 12:06:00 PM EDT [facility] Name Value Range Interpretation Code Description Data Lore rce(s) Supporting Document(s) TROPONIN T <0.01 NG/ML 0.00 - 0.10 [facility] TROPONIN T0.1 ng/ml Recommended as the c linical threshold value forTroponin T. ID Date Data Source [id number] 01/09/2021 11:48:00 AM T [facility] Name Value Range Interpretation Code Description Data Lore rce(s) Supporting Document(s) CBC W/AUTOMATED DIFF [facility] COMPLETE BLOOD COUNT Leukocytes [#/volume] in Blood by Automated count 9.6 10^3/uL 4.2 - 1 1.0 [facility] Erythrocytes [#/volume] in Blood by Automated count 5.38 10^6/uL 4. 50 - 6.30 [facility] Hemoglobin [Mass/volume] in Blood 16.2 g/dL 14.0 - 16.0 H [facility] Hematocrit [Volume Fraction] of Blood by Automated count 47.2 % 4 1.0 - 51.0 [facility] Erythrocyte mean corpuscular volume [Entitic volume] by Auto mated count 87.7 fL 80.0 - 94.0 [facility] Erythrocyte mean corpuscular hemoglobin [Entitic mass] by Automated count 30.1 pg 27.0 - 34.0 [facility] Erythrocyte mean corpuscular hemoglobin concentration [Mass/volume] by Automated count 34.3 g/dL 31.0 - 36.0 [facility] Erythrocyte distribution width [Ratio] by Automated count 12.6 % 11.5 - 14.8 [facility] Platelets [#/volume] in Blood by Automated count 320 10^3/uL 150 - 45 0 [facility] Platelet mean volume [Entitic volume] in Blood by Automated count 9.2 fL 7.4 - 10.4 [facility] Neutrophils/100 leukocytes in Blood by Automated count 57.2 % 37. 0 - 80.0 [facility] Lymphocytes/100 leukocytes in Blood by Manual count 30.0 % 25.0 - 40.0 [facility] Monocytes/100 leukocytes in Blood by Automated count 10.0 % 3.0 - 8.0 H [facility] Eosinophils/100 leukocytes in Blood by Automated count 1.8 % 0.0 - 7.0 [facility] Basophils/100 leukocytes in Blood by Automated count 0.6 % 0.0 - 2.0 [facility] %[facility] 0.4 % 0.0 - [facility] % 0.0 - 0.0 [facility] Neutrophils [#/volume] in Blood by Automated count 5.48 10^3/uL 2.00 - 6.90 [facility] Lymphocytes [#/volume] in Blood by Automated count 2.87 10^3/uL 0.60 - 3.40 [facility] Monocytes [#/volume] in Blood by Automated count 0.96 10^3/uL 0.00 - 0.90 [facility] Eosinophils [#/volume] in Blood by Automated count 0.17 10^3/uL 0.00 - 0.70 [facility] Basophils [#/volume] in Blood by Automated count 0.06 10^3/uL 0.00 - 0.20 [facility] #IG 0.04 10^3/uL 0.00 - 0.10 [facility] #NRBC 0.00 10^3/uL 0.00 - 0.00 [facility] MANUAL DIFF NOT INDICATED [facility] RBC MORPH NOT INDICATED [facility] ID Date Data Source [id number] 12/26/2020 08:45:00 AM EDT [facility] Name Value Range Interpretation Code Description Data [...] mm[Hg] 84 mm[Hg] [facility] (Fabien Holly MD) Diastolic blood pressure 106 mm[Hg] 106 mm[Hg] [facility] (Fabien Holly MD) Respiratory rate 18 /min 18 /min [facility] ( Fabien Holly MD) Body weight 281.25 [lb_av] 281.25 [lb_av] MEDEN T (Fabien Holly MD) Body mass index (BMI) [Ratio] 36.1 kg/m2 36.1 k g/m2 [facility] (Fabien Holly MD) Body temperature 98.5 [degF] 98.5 [degF] [facility] (Fabien Holly MD) Systolic blood pressure 148 mm[Hg] 148 mm[Hg] M EDENT (Fabien Holly MD) Heart rate 129 /min 129 /min [facility] (Fabien Holly MD) Body height 74 [in_i] 74 [in_i] [facility] (Fabien Holly MD) 6'2" Oxygen saturation in Arterial blood by Pulse oximetry 97 % 97 % [facility] (Fabien Holly MD)
== END 2021-04-21 05:03 | disposition left against medical advice (07) ==
LOC: M ED 03:06
DX: Z53.21 Procedure and treatment not carried out due to patient leaving prior to being seen by health care provider (principal)

== ENCOUNTER → 2023-04-22 | Outpatient (REF) | payer MEDICARE ==
[~2023-04-22] MED LIST changes: +LOPR1TAB6 PO
== END ==
LOC: M LAB REF 15:29
PROVIDERS: ATTEND Surgery
DX: D17.22 Benign lipomatous neoplasm of skin and subcutaneous tissue of left arm (principal)

== ENCOUNTER 2024-11-26 06:20 | Emergency (ER) | payer MEDICARE, OTHER ==
[~2024-11-26] VITALS: Ht 190.5 cm; Wt 136.4 kg
[2024-11-26] MEDS ORDERED: METO1TAB7 PO (06:31)
[2024-11-26 09:20] VITALS: O2SAT 97
[2024-11-26 09:21] VITALS: BP 132/81
[2024-11-26 09:29] VITALS: TEMP 97.5
== END 2024-11-26 09:42 | disposition home or self-care (01) ==
LOC: M ED 06:20
DX: S93.401A Sprain of unspecified ligament of right ankle, initial encounter (principal); Y92.019 Unspecified place in single-family (private) house as the place of occurrence of the external cause; Y93.9 Activity, unspecified; Y99.9 Unspecified external cause status; W19.XXXA Unspecified fall, initial encounter; I10 Essential (primary) hypertension; Z91.09 Other allergy status, other than to drugs and biological substances; Z79.899 Other long term (current) drug therapy